=== PATIENT | male | born 1950 | race African-American/Black ===

== ENCOUNTER 2022-11-19 09:19 | Inpatient (IN) | payer MEDICARE, MEDICAID ==
[~2022-11-19] VITALS: Ht 188 cm; Wt 66.7 kg
[2022-11-19] MEDS ORDERED: CEFEPIME 1 GM in IV D5W 50 ML IV ONE ×2 (09:30→15:00)
[2022-11-19] MEDS ORDERED: VANCOMYCIN 1 GM in IV D5W 250 ML IV ONE (09:30)
[2022-11-19] MEDS ORDERED: IV NS 0.9% 1,000 ML BAG IV ONE (09:30)
--- NOTE | 2022-11-19 09:37 | NUR ---
MOVE SHEET SUBMITTED.
--- NOTE | 2022-11-19 09:40 | NUR ---
Patient non verbal, not able to asseds patients mental status at this moment. IV 20g placed on raisa right arm, IV fluids initiated.
--- NOTE | 2022-11-19 09:43 | NUR ---
CALLED [facility] [phone] TYLENOL 325 X 2 PO GIVEN AT 0815 PER [facility].
[2022-11-19 09:48] LABS: BASOPHILS # (AUTO) 0.1 K/uL (0.0-0.2); BASOPHILS % (AUTO) 0.8 % (0.0-2.0); EOSINOPHILS % (AUTO) 0.1 % (0.0-6.0); HEMATOCRIT 33 % (39-51); HEMOGLOBIN 10.1 g/dL (13.5-17.5); LYMPHOCYTES # (AUTO) 2.2 K/uL (0.8-4.8); LYMPHOCYTES % (AUTO) 14.7 % (20.0-44.0); MEAN CORPUSCULAR HGB CONC 31 g/dl (31.0-36.0); MEAN CORPUSCULAR VOLUME 85 fL (80-96); MONOCYTES # (AUTO) 1.2 K/uL (0.1-1.30); MONOCYTES % (AUTO) 8.2 % (2.0-12.0); NEUTROPHILS # (AUTO) 11.3 K/uL (1.8-8.9); NEUTROPHILS % (AUTO) 76.2 % (43.0-81.0); PLATELET COUNT (AUTO) 303 K/uL (150-450); WHITE BLOOD COUNT (AUTO) 14.9 K/uL (4.3-11.0)
--- NOTE | 2022-11-19 09:50 | NUR ---
Bloodcollected, including cultures and urine, sent to lab.
[2022-11-19 09:52] LABS: BILIRUBIN,URINE 1+ (NEGATIVE); COLOR,URINE BROWN (YELLOW); LEUKOCYTE ESTERASE ,URINE 3+ (NEGATIVE); NITRITE, URINE NEGATIVE (NEGATIVE); PH,URINE 6.5 (5.0-8.0); PROTEIN,URINE 3+ mg/dl (NEGATIVE); UGLUCOSE NEGATIVE (NEGATIVE)
[2022-11-19] MEDS ORDERED: LEVE500T9 PO (10:15)
[2022-11-19] MEDS ORDERED: CHOL100043 PO (10:15)
[2022-11-19] MEDS ORDERED: METO25TA20 PO (10:15)
[2022-11-19] MEDS ORDERED: FOLI0.4T6 PO (10:15)
[2022-11-19] MEDS ORDERED: MEGE400O4 PO (10:15)
[2022-11-19] MEDS ORDERED: COLL30OI TP (10:15)
[2022-11-19] MEDS ORDERED: AMIN30LI2 PO (10:15)
[2022-11-19] MEDS ORDERED: MAGN400O6 PO (10:15)
[2022-11-19] MEDS ORDERED: NA P133E RC (10:15)
[2022-11-19] MEDS ORDERED: BISA10SU11 RC (10:15)
[2022-11-19] MEDS ORDERED: SENN-261 PO (10:15)
[2022-11-19] MEDS ORDERED: ASPI-1169 PO (10:15)
[2022-11-19] MEDS ORDERED: NALO4SPR NS (10:15)
[2022-11-19] MEDS ORDERED: OXYC-128 PO ×2 (10:15)
[2022-11-19] MEDS ORDERED: ACET-868 PO (10:15)
[2022-11-19] MEDS ORDERED: ASCO-340 PO (10:15)
[2022-11-19 10:23] LABS: BACTERIA,URINE Many /HPF (None Seen); SQUAMOUS EPITHELIAL CELL,UR Moderate /HPF (None Seen); WBC,URINE TOO NUMEROUS TO COUN /HPF (0-3)
--- NOTE | 2022-11-19 10:23 | NUR ---
[facility] CALLED SLIME PLANT OPERATOR HELPER PAGED.
--- NOTE | 2022-11-19 11:05 | NUR ---
covid swab collected and sent to lab
[2022-11-19 11:09] LABS: CALCIUM, SERUM 10.1 mg/dL (8.5-10.1); CARBON DIOXIDE 23 mmol/L (21-32); CHLORIDE 121 mmol/L (98-107); CREATININE 2.4 mg/dL (0.6-1.3); GLUCOSE 135 mg/dL (74-106); POTASSIUM 4.1 mmol/L (3.5-5.1); UREA NITROGEN, BLOOD 76 mg/dL (7-18)
[2022-11-19 11:11] LABS: SODIUM SERUM 156 mmol/L (136-145)
[2022-11-19 11:22] LABS: ALANINE AMINOTRANSFERASE 283 U/L (12-78); ALBUMIN 2.2 g/dL (3.4-5.0); ALKALINE PHOSPHATASE 144 U/L (46-116); ASPARTATE AMINOTRANSFERASE 296 U/L (15-37); BILIRUBIN,DIRECT 0.6 mg/dL (0.0-0.2); BILIRUBIN,TOTAL 0.9 mg/dL (0.2-1.0)
[2022-11-19] MEDS: LEVETIRACETAM (500MG) 500 MG in IV NS 0.9% 100 ML IV SCH (12:30)
[2022-11-19] MEDS ORDERED: IV NS 0.9% 1,000 ML IV ONE (13:00)
[2022-11-19] MEDS ORDERED: Z GUARD REMEDY 4 OZ OINT TP PRN (13:00)
[2022-11-19] MEDS ORDERED: ENOXAPARIN SODIUM 30 MG/0.3 ML DISP.SYRIN SQ SCH (13:00)
[2022-11-19] MEDS ORDERED: ACETAMINOPHEN 650 MG/SUPP.RECT RC PRN (13:00)
[2022-11-19] MEDS ORDERED: ONDANSETRON HCL/PF 4 MG/2 ML VIAL IVP PRN (13:00)
--- NOTE | 2022-11-19 13:05 | NUR ---
Patient more alert now, non-verbal (nods). Suctioned secretions, oral cavity is dry with thick white/yellow secretions. Provided oral care, patient was able to use suction wand himself with my help. Will continue to monitor thorughout shift.
[2022-11-19] MEDS ORDERED: ASPIRIN 300 MG/SUPP.RECT RC ONE (13:30)
--- NOTE | 2022-11-19 13:50 | NUR ---
Report given to Joann BRADLEY, pt to go to room # 547-2
--- NOTE | 2022-11-19 14:15 | NUR ---
NEW PATIENT NOTES PATIENT ARRIVED FROM ER VIA STRETCHER REPORT RECEIVED FROM ER NURSE MICHELLE. PATIENT A&O X1 NONVERBAL ON NC 4 LITTERS O2 SAT 97%. WOUNDS PHOTO TAKEN PLACED IN THE CHART. SWALLOW EVAL AND WOUND CONSULT ORDERED. PATIENT'S SISTER CALLED AND REPORTED THAT PATIENT WILLING TO HAVE CPR BUT NOT INTUBATION DR. BETSEY MOODY INFORMED AND HE SAID OK. PATIENT'S SISTER TUNDE STATED THAT SHE HAS A POWER OF GENERAL DENTIST/OWNER I INFORMED DR. BETSEY MOODY WELL. WILL CONTINUE THE CARE THROUGHOUT THE SHIFT.
[2022-11-19] MEDS: IV D5/ 0.9% NACL 1,000 ML IV PRN (15:40)
[2022-11-19] MEDS: ENOXAPARIN SODIUM 30 MG/0.3 ML DISP.SYRIN SQ SCH (15:41)
[2022-11-19 16:00] VITALS: BP 91/47
--- NOTE | 2022-11-19 18:57 | NUR ---
RN CLOSING NOTES PATIENT A&O X1 NONVERBAL ON NC 4 LITTERS O2 SAT 97%. WOUNDS PHOTO TAKEN PLACED IN THE CHART. SWALLOW EVAL AND WOUND CONSULT ORDERED. PATIENT HAS LFA G 20 D5 NS @70 ML/HR RUNNING AND INTACT, PATIENT HAS FLEMING WITH GREGORIO LOOKING URINE. PATIENT'S SISTER CALLED AND REPORTED THAT PATIENT WILLING TO HAVE CPR BUT NOT INTUBATION DR. BETSEY MOODY INFORMED AND HE SAID OK. PATIENT'S SISTER TUNDE [phone] STATED THAT SHE HAS A POWER OF FISH INSPECTOR I INFORMED DR. BETSEY MOODY WELL. WILL INDORSE THE PATIENT TO THE PM SHIFT FOR SARAI.
[2022-11-19 20:00] VITALS: BP 97/62
--- NOTE | 2022-11-19 20:08 | NUR ---
RN NOTES: RECEIVED LAB RESULTS. TROPONIN LEVEL 238. TRENDING DOWN
[2022-11-20] VITALS: BP 102/66
[2022-11-20] MEDS: LEVETIRACETAM (500MG) 500 MG in IV NS 0.9% 100 ML IV SCH ×2 (00:57→11:56)
[2022-11-20 04:00] VITALS: BP 103/68
[2022-11-20] MEDS: IV D5/ 0.9% NACL 1,000 ML IV PRN (06:28)
--- NOTE | 2022-11-20 06:48 | NUR ---
RN CLOSING NOTES PATIENT IN BED SLEEPING, BUT EASILY AROUSABLE, ALERT/ORIENTED X1-2 WITH UNCLEAR SPEECH. ON O2 AT 4L/MIN VIA N/C. O2 SAT 99%. IV ACCESS ON LAC#20G AND RFA#20G INTACT AND PATENT. NO S/S OF INFILTRATIONS. RUNNING D5NS AT 75CC/HR. NO FACIAL GRIMACING NOTED. NO ACUTE DISTRESS. FLEMING CATHETER IN PLACE. NOTED GREGORIO COLOR URINE. ALL DUE MEDS GIVEN ORDERED. ALL SAFETY MEASURES IN PLACE. SIDE RAILS UP X3, BED IN LOWEST POSITION AND LOCKED. PLACE CALL LIGHT WITH IN REACH. WILL ENDORSE TO MORNING SHIFT NURSE.
[2022-11-20 07:19] LABS: BASOPHILS % (AUTO) 0.3 % (0.0-2.0); EOSINOPHILS % (AUTO) 0.9 % (0.0-6.0); HEMATOCRIT 32 % (39-51); HEMOGLOBIN 9.5 g/dL (13.5-17.5); LYMPHOCYTES # (AUTO) 1.4 K/uL (0.8-4.8); LYMPHOCYTES % (AUTO) 7.9 % (20.0-44.0); MEAN CORPUSCULAR HGB CONC 30 g/dl (31.0-36.0); MEAN CORPUSCULAR VOLUME 88 fL (80-96); MONOCYTES # (AUTO) 0.8 K/uL (0.1-1.30); MONOCYTES % (AUTO) 4.6 % (2.0-12.0); NEUTROPHILS # (AUTO) 15.5 K/uL (1.8-8.9); NEUTROPHILS % (AUTO) 86.3 % (43.0-81.0); PLATELET COUNT (AUTO) 253 K/uL (150-450); RED BLOOD CELL COUNT(AUTO) 3.65 MIL/uL (4.5-6.0); WHITE BLOOD COUNT (AUTO) 17.9 K/uL (4.3-11.0)
--- NOTE | 2022-11-20 07:29 | NUR ---
WOUND CARE CONSULT: PT RESTING AT THIS TIME. ADMISSION PHOTOS AND SENDING FACILITY DOCUMENTATION INDICATE SACRAL AND UPPER BACK STAGE 4 PRESSURE ULCERS AND FOOT WOUNDS, PRESENT ON ADMISSION. DR BARBER AND DR WHITAKER CALLED FOR SURGICAL AND DPM CONSULTS. DISCUSSED SKIN PROTECTION WITH NURSING STAFF. PT IS ON [facility] LOW AIRLOSS BED. IN AGREEMENT WITH PLAN OF CARE.
[2022-11-20] MEDS: ASPIRIN 81 MG TAB.CHEW PO SCH (09:00)
--- NOTE | 2022-11-20 09:03 | NUR ---
ASPIRIN HELD, PATIENT IS NPO, ST STATED THAT SWALLOW EVAL CANNOT BE DONE SINCE PATIENT HAS A HISTORY OF ASPIRATION AND IS NOT ORIENTED. WILL INFORM THE DOCTOR.
[2022-11-20] MEDS: PANTOPRAZOLE 40 MG VIAL IV SCH (09:05)
[2022-11-20 09:18] LABS: CALCIUM, SERUM 8.9 mg/dL (8.5-10.1); CARBON DIOXIDE 23 mmol/L (21-32); CREATININE 1.4 mg/dL (0.6-1.3); GLUCOSE 134 mg/dL (74-106); PHOSPHORUS 2.6 mg/dL (2.5-4.9); POTASSIUM 4.2 mmol/L (3.5-5.1); UREA NITROGEN, BLOOD 47 mg/dL (7-18)
[2022-11-20 09:28] LABS: CHLORIDE 128 mmol/L (98-107); SODIUM SERUM 159 mmol/L (136-145)
[2022-11-20] MEDS: THERAHONEY GEL 1.5 OZ TUBE TP SCH ×2 (11:56→21:30)
[2022-11-20 12:00] VITALS: BP 89/58
[2022-11-20] MEDS: IV D5/0.45 NACL 1,000 ML IV PRN (12:00)
[2022-11-20 12:53] LABS: ABG BASE EXCESS -6.2 mmol/L; ABG PCO2 27.8 mmHg (35.0-45.0); ABG PH 7.415 (7.350-7.450); ABG PO2 109.5 mmHg (75.0-100.0); COHb 2.3 % (0.5-1.5); MetHb 0.2 % (0.0-1.5); O2Hb 96.1 % (94.0-97.0); SITE, ABG Right Brachial; VENT MODE, BG 10LPM SIMPLE MASK
--- NOTE | 2022-11-20 14:35 | NUR ---
WOUND DEBRIDEMENT CONSENT OBTAIN OVER THE PHONE FROM PATIENT'S SISTER TUNDE CERNA AND PLACED AT PATIENT'S CHART
[2022-11-20] MEDS: CEFEPIME 1 GM in IV D5W 50 ML IV SCH (15:17)
[2022-11-20 15:21] LABS: EOSINOPHILS % (MANUAL) 1 % (0-4); LYMPHOCYTES % (MANUAL) 10 % (16-48); MONOCYTES % (MANUAL) 2 % (0-11.0); NEUTROPHILS % (MANUAL) 87 (42-76)
[2022-11-20] MEDS: ENOXAPARIN SODIUM 30 MG/0.3 ML DISP.SYRIN SQ SCH (15:21)
[2022-11-20 16:00] VITALS: BP 84/49
[2022-11-20] MEDS: VANCOMYCIN 1 GM in IV D5W 250ml IV SCH (16:15)
--- NOTE | 2022-11-20 19:05 | NUR ---
RN CLOSING NOTES PATIENT A&O X1 NONVERBAL ON NC 4 LITTERS O2 SAT 97%. PATIENT HAS LFA G 20 D5 NS @100 ML/HR RUNNING AND INTACT, PATIENT HAS FLEMING WITH GREGORIO LOOKING URINE. CALLED PATIENT'S SISTER TUNDE TO OBTAIN WOUND DEBRIDMENT CONSENT FOR BILATERALLY HEELS TELEPHONE CONSENT IN PATIENT'S CHART. ALL DUE MEDS GIVEN, VIA IV PATIENT IS NPO. WILL INDORSE THE PATIENT TO THE PM SHIFT FOR SARAI.
[2022-11-20 20:00] VITALS: BP 103/64
[2022-11-20] MEDS ORDERED: VANCOMYCIN 1 GM in IV D5W 250ml IV SCH (22:00)
[2022-11-21] VITALS: BP_SYST 103; BP_SYST 108; BP_DIAS 64
[2022-11-21] MEDS: LEVETIRACETAM (500MG) 500 MG in IV NS 0.9% 100 ML IV SCH ×3 (01:17→23:33)
[2022-11-21 04:00] VITALS: BP 103/66
[2022-11-21] MEDS: IV D5/0.45 NACL 1,000 ML IV PRN (05:40)
[2022-11-21 08:00] VITALS: BP 96/64
[2022-11-21] MEDS: THERAHONEY GEL 1.5 OZ TUBE TP SCH ×4 (09:00→11:16)
[2022-11-21 10:04] LABS: BASOPHILS # (AUTO) 0.1 K/uL (0.0-0.2); BASOPHILS % (AUTO) 0.4 % (0.0-2.0); EOSINOPHILS % (AUTO) 2.6 % (0.0-6.0); HEMATOCRIT 31 % (39-51); HEMOGLOBIN 9.1 g/dL (13.5-17.5); LYMPHOCYTES # (AUTO) 1.4 K/uL (0.8-4.8); LYMPHOCYTES % (AUTO) 5.2 % (20.0-44.0); MEAN CORPUSCULAR HGB CONC 30 g/dl (31.0-36.0); MEAN CORPUSCULAR VOLUME 87 fL (80-96); MONOCYTES # (AUTO) 0.8 K/uL (0.1-1.30); NEUTROPHILS % (AUTO) 88.8 % (43.0-81.0); PLATELET COUNT (AUTO) 325 K/uL (150-450); RED BLOOD CELL COUNT(AUTO) 3.53 MIL/uL (4.5-6.0)
[2022-11-21] MEDS: PANTOPRAZOLE 40 MG VIAL IV SCH (10:06)
[2022-11-21] MEDS: ASPIRIN 81 MG TAB.CHEW PO SCH (10:07)
[2022-11-21 11:01] LABS: ALANINE AMINOTRANSFERASE 121 U/L (12-78); ALBUMIN 1.6 g/dL (3.4-5.0); ALKALINE PHOSPHATASE 116 U/L (46-116); ASPARTATE AMINOTRANSFERASE 84 U/L (15-37); BILIRUBIN,TOTAL 0.3 mg/dL (0.2-1.0); CALCIUM, SERUM 9.2 mg/dL (8.5-10.1); CARBON DIOXIDE 24 mmol/L (21-32); CREATININE 1.4 mg/dL (0.6-1.3); GLUCOSE 112 mg/dL (74-106); MAGNESIUM 2.1 mg/dL (1.8-2.4); PHOSPHORUS 2.4 mg/dL (2.5-4.9); POTASSIUM 3.8 mmol/L (3.5-5.1); TOTAL PROTEIN, SERUM 7.7 g/dL (6.4-8.2); UREA NITROGEN, BLOOD 34 mg/dL (7-18)
[2022-11-21 11:03] LABS: CHLORIDE 129 mmol/L (98-107); SODIUM SERUM 161 mmol/L (136-145)
[2022-11-21] MEDS: ENOXAPARIN SODIUM 40 MG/0.4 ML DISP.SYRIN SQ SCH (11:38)
[2022-11-21] MEDS: IV D5W 1,000 ML IV PRN (11:39)
[2022-11-21 12:00] VITALS: BP 95/66
[2022-11-21] MEDS: CEFEPIME 1 GM in IV D5W 50 ML IV SCH (14:43)
[2022-11-21] MEDS: VANCOMYCIN 1 GM in IV D5W 250ml IV SCH (15:26)
[2022-11-21] MEDS ORDERED: Sodium Phosphate 15 MMOL in IV NS 0.9% 245 ML IV SCH ×2 (15:30→17:00)
[2022-11-21 16:00] VITALS: BP 92/62
--- NOTE | 2022-11-21 19:30 | NUR ---
DIRECT MARKETING SPECIALIST OPENING NOTE RECEIVED PT IN BED, AWAKE, A/O X 0 TO SELF. CURRENTLY ON RA, TOLERATING WELL, SATING @ 98%. PROCESS DEVELOPMENT ENGINEER READS ST WITH HR IN 110s AT THIS TIME. NO SOB, BREATHING IS EVEN AND UNLABORED. NO S/SX OF ACUTE RESPI DISTRESS NOTED AT THIS TIME. IV ACCESS ON RFA #20g RUNNING D5W @ 75 CC/HR, PATENT, INTACT AND FLUSHES WELL. FC IN PLACE DRAINING YELLOW URINE BY GRAVITY. ALL SAFETY MEASURES IN PLACE: BED LOCKED IN LOW POSITION, BED ALARM ON. SR UP X 3, CALL LIGHT WITHIN REACH. WILL CONTINUE TO MONITOR PT.
[2022-11-21 20:00] VITALS: BP 109/70
[2022-11-21 20:50] LABS: BAND % (MANUAL) 4 % (0.0-5.0); EOSINOPHILS % (MANUAL) 4 % (0-4); LYMPHOCYTES % (MANUAL) 6 % (16-48); MONOCYTES % (MANUAL) 2 % (0-11.0); NEUTROPHILS % (MANUAL) 84 (42-76)
[2022-11-21] MEDS: MUPIROCIN OINT 2% 22 GM TUBE NS SCH (20:53)
[2022-11-22] VITALS (7 sets, daily range): BP systolic 87–112; BP diastolic 58–65
--- NOTE | 2022-11-22 06:28 | NUR ---
RN CLOSING NOTE NO SIGNIFICANT CHANGE T/O THE NIGHT. ALL DUE MEDS GIVEN. NEEDS MET. PM CARE DONE. TURNED AND REPOSITIONED. WILL ENDORSE TO AM SHIFT NURSE FOR SARAI.
--- NOTE | 2022-11-22 07:25 | NUR ---
RN OPENING NOTE RECEIVED PATIENT IN BED, AWAKE, ALERT TO SELF, NO SIGNS OF ACUTE DISTRESS NOTED. ON O2 INHALATION @ 2LPM VIA N/C, NO SOB NOTED, BREATHING EVEN AND UNLABORED. ON TELE MONITORING SHOWING SINUS RHYTHM, HR @98. DENIES ANY PAIN AT THIS TIME. NOTED WITH IV ACCESS ON RIGHT FOREARM #20G, INTACT AND PATENT WITH D5W @75ML/HR RUNNING. F/C INTACT AND PATENT DRAINING GREGORIO COLORED URINE VIA GRAVITY. PATIENT CURRENTLY ON NPO. ASPIRATION PRECAUTIONS AND SAFETY MEASURE IN PLACE. BED IN LOW AND LOCKED POSITION, SIDE RAILS UP X2, CALL LIGHT PLACED WITHIN EASY REACH, WILL CONTINUE TO MONITOR PATIENT.
[2022-11-22 07:42] LABS: BASOPHILS # (AUTO) 0.1 K/uL (0.0-0.2); BASOPHILS % (AUTO) 0.6 % (0.0-2.0); EOSINOPHILS % (AUTO) 2.2 % (0.0-6.0); HEMATOCRIT 32 % (39-51); HEMOGLOBIN 9.5 g/dL (13.5-17.5); LYMPHOCYTES # (AUTO) 1.5 K/uL (0.8-4.8); LYMPHOCYTES % (AUTO) 5.7 % (20.0-44.0); MEAN CORPUSCULAR HGB CONC 30 g/dl (31.0-36.0); MEAN CORPUSCULAR VOLUME 87 fL (80-96); MONOCYTES # (AUTO) 0.8 K/uL (0.1-1.30); NEUTROPHILS # (AUTO) 22.8 K/uL (1.8-8.9); NEUTROPHILS % (AUTO) 88.5 % (43.0-81.0); PLATELET COUNT (AUTO) 363 K/uL (150-450); RED BLOOD CELL COUNT(AUTO) 3.69 MIL/uL (4.5-6.0); WHITE BLOOD COUNT (AUTO) 25.7 K/uL (4.3-11.0)
[2022-11-22] MEDS: PANTOPRAZOLE 40 MG VIAL IV SCH (08:29)
[2022-11-22] MEDS: ASPIRIN 81 MG TAB.CHEW PO SCH (08:29)
[2022-11-22] MEDS: MUPIROCIN OINT 2% 22 GM TUBE NS SCH ×2 (08:34→20:42)
[2022-11-22] MEDS: THERAHONEY GEL 1.5 OZ TUBE TP SCH (08:35)
[2022-11-22 08:48] LABS: ALANINE AMINOTRANSFERASE 104 U/L (12-78); ALBUMIN 1.8 g/dL (3.4-5.0); ALKALINE PHOSPHATASE 131 U/L (46-116); ASPARTATE AMINOTRANSFERASE 58 U/L (15-37); BILIRUBIN,TOTAL 0.3 mg/dL (0.2-1.0); CALCIUM, SERUM 9.6 mg/dL (8.5-10.1); CARBON DIOXIDE 22 mmol/L (21-32); CHLORIDE 125 mmol/L (98-107); CREATININE 1.5 mg/dL (0.6-1.3); GLUCOSE 99 mg/dL (74-106); MAGNESIUM 2.2 mg/dL (1.8-2.4); PHOSPHORUS 3.3 mg/dL (2.5-4.9); POTASSIUM 3.5 mmol/L (3.5-5.1); TOTAL PROTEIN, SERUM 8.3 g/dL (6.4-8.2); UREA NITROGEN, BLOOD 27 mg/dL (7-18)
[2022-11-22 08:51] LABS: SODIUM SERUM 157 mmol/L (136-145)
[2022-11-22] MEDS: IV D5W 1,000 ML IV PRN (09:33)
[2022-11-22] MEDS: ENOXAPARIN SODIUM 40 MG/0.4 ML DISP.SYRIN SQ SCH (10:45)
[2022-11-22] MEDS: LEVETIRACETAM (500MG) 500 MG in IV NS 0.9% 100 ML IV SCH ×2 (11:34→23:33)
[2022-11-22] MEDS: CEFEPIME 1 GM in IV D5W 50 ML IV SCH (14:10)
[2022-11-22] MEDS: VANCOMYCIN 1 GM in IV D5W 250ml IV SCH (15:27)
--- NOTE | 2022-11-22 18:39 | NUR ---
RN CLOSING NOTE PATIENT IN BED, ASLEEP, EASILY AROUSED. NO SIGNS OF ACUTE DISTRESS NOTED. REMAINS ON O2 INHALATION @ 2LPM VIA N/C, NO SOB NOTED, BREATHING EVEN AND UNLABORED. CONTINUE ON TELE MONITORING SHOWING SINUS TACH, HR @103. NO S/SX OF PAIN AT THIS TIME. WITH MIDLINE ON RIGHT UPPER ARM #18G, INTACT AND PATENT WITH D5W @75ML/HR RUNNING. F/C INTACT AND PATENT DRAINING GREGORIO COLORED URINE VIA GRAVITY. TURNED AND REPOSITIONED Q2HR. ASPIRATION PRECAUTIONS AND SAFETY MEASURE MAINTAINED. BED IN LOW AND LOCKED POSITION, SIDE RAILS UP X2, CALL LIGHT PLACED WITHIN EASY REACH, WILL ENDORSE TO NEXT SHIFT FOR CONTINUITY OF CARE.
--- NOTE | 2022-11-22 19:26 | NUR ---
HUMAN SERVICES ASSISTANT OPENING NOTE RECEIVED PATIENT IN BED, WITH HOB ELEVATED, AWAKE WITH CONFUSION. AFEBRILE AND NOT IN ANY FORM OF ACUTE DISTRESS. ON O2 INHALATION VIA NASAL CANNULA AT 2LPM. WITH IV ACCESS ON CAROLYNN MIDLINE 18G RUNNING WITH D5W RUNNING AT 75ML/HR. ON TELE MONITORING WITH CURRENT READING OF ST 103. WITH INTACT LFEMING CATHETER DRAINING WITH YELLOW URINE OUTPUT, NO HEMATURIA OR SEDIMENTS NOTED. SAFETY MEASURES IN PLACE. KEPT BED IN LOCKED AND IN LOW POSITION. SIDE RAILS UP X2. CALL LIGHT WITHIN EASY REACH.
[2022-11-23] VITALS (7 sets, daily range): BP systolic 89–112; BP diastolic 55–70
[2022-11-23] MEDS: IV D5W 1,000 ML IV PRN (02:40)
--- NOTE | 2022-11-23 05:45 | NUR ---
CAREER REPRESENTATIVE NOTE CALLED SISTER TUNDE TO SECURE CONSENT OVER THE PHONE FOR PROPOSED PROCEDURE (DEBRIDEMENT OF SACRUM AND UPPER BACK) ORDERED BY AND AGREED TO IT. ANOTHER LICENSED NURSE ELAINE ALSO SERVED A WITNESS AND VERIFIED THAT SISTER TUNDE GAVE HER CONSENT FOR THE PROCEDURE.
[2022-11-23 06:18] LABS: BASOPHILS # (AUTO) 0.1 K/uL (0.0-0.2); BASOPHILS % (AUTO) 0.5 % (0.0-2.0); HEMATOCRIT 27 % (39-51); LYMPHOCYTES # (AUTO) 1.6 K/uL (0.8-4.8); LYMPHOCYTES % (AUTO) 9.5 % (20.0-44.0); MEAN CORPUSCULAR HGB CONC 30 g/dl (31.0-36.0); MEAN CORPUSCULAR VOLUME 88 fL (80-96); MONOCYTES # (AUTO) 0.7 K/uL (0.1-1.30); MONOCYTES % (AUTO) 4.3 % (2.0-12.0); NEUTROPHILS # (AUTO) 13.8 K/uL (1.8-8.9); NEUTROPHILS % (AUTO) 82.7 % (43.0-81.0); PLATELET COUNT (AUTO) 339 K/uL (150-450); RED BLOOD CELL COUNT(AUTO) 3.03 MIL/uL (4.5-6.0); WHITE BLOOD COUNT (AUTO) 16.7 K/uL (4.3-11.0)
--- NOTE | 2022-11-23 06:30 | NUR ---
INORGANIC CHEMISTRY TEACHER CLOSING NOTE PATIENT IN BED, WITH HOB ELEVATED, ASLEEP BUT EASY TO AROUSE AND RESPONDS TO VERBAL AND TACTILE STIMULI. AFEBRILE AND NOT IN ANY FORM OF ACUTE DISTRESS. ON O2 INHALATION VIA NASAL CANNULA AT 2LPM. WITH IV ACCESS ON CAROLYNN MIDLINE 18G RUNNING WITH D5W AT 75ML/HR. ON TELE MONITORING WITH CURRENT READING OF SR 96. WITH INTACT FLEMING CATHETER DRAINING WITH YELLOW URINE OUTPUT, NO HEMATURIA NOTED WITH APPROX. 500ml OUTPUT DURING THE SHIFT. MEDICATED ORDERED. MAINTAINED ON NPO. SAFETY MEASURES IN PLACE. KEPT BED IN LOCKED AND IN LOW POSITION. SIDE RAILS UP X2. CALL LIGHT WITHIN EASY REACH. ALL NURSING NEEDS ATTENDED. ENDORSED TO INCOMING SHIFT FOR CONTINUITY OF CARE.
[2022-11-23 06:44] LABS: ALANINE AMINOTRANSFERASE 59 U/L (12-78); ALBUMIN 1.5 g/dL (3.4-5.0); ALKALINE PHOSPHATASE 105 U/L (46-116); ASPARTATE AMINOTRANSFERASE 33 U/L (15-37); BILIRUBIN,TOTAL 0.3 mg/dL (0.2-1.0); CALCIUM, SERUM 8.8 mg/dL (8.5-10.1); CHLORIDE 121 mmol/L (98-107); CREATININE 1.3 mg/dL (0.6-1.3); GLUCOSE 106 mg/dL (74-106); PHOSPHORUS 3.2 mg/dL (2.5-4.9); POTASSIUM 3.1 mmol/L (3.5-5.1); SODIUM SERUM 151 mmol/L (136-145); TOTAL PROTEIN, SERUM 7.1 g/dL (6.4-8.2); UREA NITROGEN, BLOOD 21 mg/dL (7-18)
[2022-11-23 06:49] LABS: CARBON DIOXIDE 21 mmol/L (21-32)
--- NOTE | 2022-11-23 07:15 | NUR ---
SENIOR ADMINISTRATIVE SERVICES OFFICER OPENING NOTE RECEIVED PATIENT IN BED WITH HOB ELEVATED, AWAKE, AWARE OF SELF ONLY, NON-VERBAL, AFEBRILE, NO ACUTE DISTRESS NOTED. ON O2 INHALATION VIA NASAL CANNULA AT 2LPM WITHOUT ANY DIFFICULTY. WITH IV ACCESS ON CAROLYNN MIDLINE 18G RUNNING WITH D5W RUNNING AT 75ML/HR, PATENT AND FLUSHING WELL. NO SIGNS OF INFILTRATION NOTED. ON TELE MONITORING WITH CURRENT READING OF SR @ 95 BPM. WITH FLEMING CATHETER DRAINING YELLOW URINE VIA GRAVITY, INTACT, NO HEMATURIA NOR SEDIMENTS NOTED. SAFETY MEASURES IN PLACE. KEPT BED IN LOCKED AND LOWEST POSITION, SIDE RAILS UP X2, BED ALARM ON, CALL LIGHT AND TRAY TABLE WITHIN EASY REACH. WILL CONTINUE TO MONITOR.
[2022-11-23] MEDS: ASPIRIN 81 MG TAB.CHEW PO SCH (08:39)
[2022-11-23] MEDS: PANTOPRAZOLE 40 MG VIAL IV SCH (08:46)
[2022-11-23] MEDS: MUPIROCIN OINT 2% 22 GM TUBE NS SCH ×2 (08:50→21:28)
[2022-11-23] MEDS: THERAHONEY GEL 1.5 OZ TUBE TP SCH ×2 (08:50→08:51)
[2022-11-23] MEDS: POTASSIUM CL. PREMIX PERIPHER. 50 ML IV SCH ×4 (10:00→13:35)
[2022-11-23] MEDS: ENOXAPARIN SODIUM 40 MG/0.4 ML DISP.SYRIN SQ SCH (10:40)
[2022-11-23] MEDS: LEVETIRACETAM (500MG) 500 MG in IV NS 0.9% 100 ML IV SCH (12:04)
[2022-11-23] MEDS: CEFEPIME 1 GM in IV D5W 50 ML IV SCH (14:50)
[2022-11-23] MEDS: VANCOMYCIN 1 GM in IV D5W 250ml IV SCH (15:27)
--- NOTE | 2022-11-23 18:44 | NUR ---
TRANSPORT ASSISTANT CLOSING NOTE PATIENT IN BED WITH HOB SLIGHTLY ELEVATED, EASILY AWAKEN, AWARE OF SELF ONLY, MUMBLES WORDS, AFEBRILE, NO ACUTE DISTRESS NOTED. STILL ON O2 INHALATION VIA NASAL CANNULA AT 2LPM WITHOUT ANY DIFFICULTY. WITH IV ACCESS ON CAROLYNN MIDLINE G#18 RUNNING WITH D5W AT 75ML/HR, PATENT AND FLUSHING WELL. TELE MONITORING IS SHOWING SR @ 98 BPM. WITH INTACT FLEMING CATHETER DRAINED CLOUDY YELLOW URINE ABOUT 500 ML. NOT SHOWING ANY PAIN NOR DISCOMFORT AT THE MOMENT. ALL DUE MEDS GIVEN. WOUND CARE PROVIDED, TURNED PT Q2H AND OFFLOADED ORDERED. SAFETY MEASURES MAINTAINED: KEPT BED IN LOCKED AND LOWEST POSITION, SIDE RAILS UP X2, BED ALARM ON, CALL LIGHT AND TRAY TABLE WITHIN EASY REACH. WILL ENDORSE TO TRACTOR TRAILER DRIVER NURSE.
--- NOTE | 2022-11-23 19:30 | NUR ---
EMAIL ADMINISTRATOR OPENING NOTES RECEIVED PT AWAKE IN BED, HOB SLIGHTLY ELEVATED, EASILY AROUSABLE. A/O X1, ORIENT TO PERSON ONLY, MUMBLES WORDS. AFEBRILE, NO ACUTE DISTRESS NOTED. ON O2 2L VIA NC WITHOUT ANY DIFFICULTY. IV ACCESS ON CAROLYNN MIDLINE G#18 RUNNING WITH D5W AT 75ML/HR, PATENT AND FLUSHING WELL. TELE MONITORING IS SHOWING SR @ 98 BPM. INTACT FLEMING CATHETER DRAINED CLOUDY YELLOW URINE. NOT SHOWING ANY PAIN NOR DISCOMFORT AT THE MOMENT. WILL TURN PT Q2H AND OFFLOAD ORDERED. SAFETY MEASURES IN PLACE: KEPT BED IN LOCKED AND LOWEST POSITION, SIDE RAILS UP X3, BED ALARM ON, CALL LIGHT AND TRAY TABLE WITHIN EASY REACH. WILL CONTINUE TO MONITOR.
[2022-11-24] VITALS (7 sets, daily range): BP systolic 99–109; BP diastolic 64–73
[2022-11-24] MEDS: IV D5W 1,000 ML IV PRN ×2 (00:05→15:14)
[2022-11-24] MEDS: LEVETIRACETAM (500MG) 500 MG in IV NS 0.9% 100 ML IV SCH ×3 (00:06→23:38)
--- NOTE | 2022-11-24 06:40 | NUR ---
MEDICAL FRONT DESK SPECIALIST CLOSING NOTES PT RESTING IN BED AT THIS TIME, HOB SLIGHTLY ELEVATED, EASILY AROUSABLE. A/O X1, ORIENT TO PERSON ONLY, MUMBLES WORDS. AFEBRILE, NO ACUTE DISTRESS NOTED. STABLE ON O2 2L VIA NC WITHOUT ANY DIFFICULTY. IV ACCESS ON CAROLYNN MIDLINE G#18 RUNNING WITH D5W AT 75ML/HR, PATENT AND FLUSHING WELL. TELE MONITORING IS SHOWING SR @ 99 BPM. INTACT FLEMING CATHETER DRAINED CLOUDY YELLOW URINE, TOTAL 500 ML. NOT SHOWING ANY PAIN NOR DISCOMFORT AT THE MOMENT. WOUND CARE PERFORMED AND PATIENT REPOSITIONED. ALL CARE PROVIDED AND MEDS TOLERATED WELL. SAFETY MEASURES MAINTAINED: KEPT BED IN LOCKED AND LOWEST POSITION, SIDE RAILS UP X3, BED ALARM ON, CALL LIGHT AND TRAY TABLE WITHIN EASY REACH. WILL ENDORSE SARAI TO DAY SHIFT NURSE.
[2022-11-24 07:13] LABS: BASOPHILS # (AUTO) 0.1 K/uL (0.0-0.2); BASOPHILS % (AUTO) 0.6 % (0.0-2.0); EOSINOPHILS % (AUTO) 3.5 % (0.0-6.0); HEMATOCRIT 26 % (39-51); HEMOGLOBIN 7.8 g/dL (13.5-17.5); LYMPHOCYTES # (AUTO) 1.6 K/uL (0.8-4.8); LYMPHOCYTES % (AUTO) 12.1 % (20.0-44.0); MEAN CORPUSCULAR HGB CONC 30 g/dl (31.0-36.0); MEAN CORPUSCULAR VOLUME 86 fL (80-96); MONOCYTES # (AUTO) 0.6 K/uL (0.1-1.30); MONOCYTES % (AUTO) 4.8 % (2.0-12.0); NEUTROPHILS # (AUTO) 10.7 K/uL (1.8-8.9); PLATELET COUNT (AUTO) 400 K/uL (150-450); RED BLOOD CELL COUNT(AUTO) 3.05 MIL/uL (4.5-6.0); WHITE BLOOD COUNT (AUTO) 13.6 K/uL (4.3-11.0)
[2022-11-24 07:23] LABS: ALBUMIN 1.5 g/dL (3.4-5.0); BILIRUBIN,TOTAL 0.3 mg/dL (0.2-1.0); CALCIUM, SERUM 8.8 mg/dL (8.5-10.1); CREATININE 1.1 mg/dL (0.6-1.3); MAGNESIUM 1.9 mg/dL (1.8-2.4); PHOSPHORUS 3.4 mg/dL (2.5-4.9); POTASSIUM 3.3 mmol/L (3.5-5.1)
[2022-11-24] MEDS: ASPIRIN 81 MG TAB.CHEW PO SCH (09:00)
[2022-11-24] MEDS: MUPIROCIN OINT 2% 22 GM TUBE NS SCH ×2 (09:00→20:57)
[2022-11-24] MEDS: THERAHONEY GEL 1.5 OZ TUBE TP SCH (09:00)
[2022-11-24] MEDS: POTASSIUM CL. PREMIX PERIPHER. 50 ML IV SCH ×2 (10:16→11:42)
[2022-11-24] MEDS: PANTOPRAZOLE 40 MG VIAL IV SCH (10:16)
[2022-11-24] MEDS: ENOXAPARIN SODIUM 40 MG/0.4 ML DISP.SYRIN SQ SCH (11:30)
--- NOTE | 2022-11-24 12:08 | NUR ---
RN NOTE DEBRIDEMENT ON BILATERAL HEELS PERFORMED ON WOUNDS TODAY. [facility] HELD
[2022-11-24] MEDS: CEFEPIME 1 GM in IV D5W 50 ML IV SCH (15:14)
[2022-11-24] MEDS: VANCOMYCIN 1 GM in IV D5W 250ml IV SCH (16:50)
--- NOTE | 2022-11-24 19:40 | NUR ---
PLATING MACHINE OPERATOR CLOSING NOTES PT RESTING IN BED AT THIS TIME, HOB 45DEGREES ELEVATED, EASILY AROUSABLE. A/O X1, ORIENT TO PERSON ONLY, MUMBLES WORDS. AFEBRILE, NO ACUTE DISTRESS NOTED. STABLE ON O2 2L VIA NC WITHOUT ANY DIFFICULTY. IV ACCESS ON CAROLYNN MIDLINE G#18 RUNNING WITH D5W AT 75ML/HR, PATENT AND FLUSHING WELL. TELE MONITORING IS SHOWING SR @ 99 BPM. INTACT FLEMING CATHETER DRAINED CLOUDY YELLOW URINE, TOTAL 600 ML. NOT SHOWING ANY PAIN NOR DISCOMFORT AT THE MOMENT. WOUND CARE PERFORMED AND PATIENT REPOSITIONED. ALL CARE PROVIDED AND MEDS TOLERATED WELL. SAFETY MEASURES MAINTAINED: KEPT BED IN LOCKED AND LOWEST POSITION, SIDE RAILS UP X3, BED ALARM ON, CALL LIGHT AND TRAY TABLE WITHIN EASY REACH. WILL ENDORSE SARAI TO SENIOR ORACLE APPLICATIONS DEVELOPER NURSE.
--- NOTE | 2022-11-24 19:45 | NUR ---
ENVIRONMENTAL ENGINEERING ASSISTANT OPENING NOTES PT RESTING IN BED AT THIS TIME, HOB 45 DEGREES ELEVATED, EASILY AROUSABLE. A/O X1, ORIENT TO PERSON ONLY, MUMBLES WORDS. AFEBRILE, NO ACUTE DISTRESS NOTED. STABLE ON O2 2L VIA NC WITHOUT ANY DIFFICULTY. IV ACCESS ON CAROLYNN MIDLINE G#18 RUNNING WITH D5W AT 75ML/HR, PATENT AND FLUSHING WELL. TELE MONITORING IS SHOWING SR @ 90S. INTACT FLEMING CATHETER DRAINED CLOUDY YELLOW URINE. NOT SHOWING ANY PAIN NOR DISCOMFORT AT THE MOMENT. SAFETY MEASURES MAINTAINED: KEPT BED IN LOCKED AND LOWEST POSITION, SIDE RAILS UP X3, BED ALARM ON, CALL LIGHT AND TRAY TABLE WITHIN EASY REACH.
[2022-11-25 00:25] VITALS: BP 104/68
[2022-11-25 05:20] VITALS: BP 116/84
[2022-11-25 06:33] LABS: BASOPHILS # (AUTO) 0.1 K/uL (0.0-0.2); BASOPHILS % (AUTO) 0.6 % (0.0-2.0); HEMATOCRIT 24 % (39-51); HEMOGLOBIN 7.5 g/dL (13.5-17.5); LYMPHOCYTES # (AUTO) 1.5 K/uL (0.8-4.8); LYMPHOCYTES % (AUTO) 13.4 % (20.0-44.0); MEAN CORPUSCULAR HGB CONC 32 g/dl (31.0-36.0); MEAN CORPUSCULAR VOLUME 83 fL (80-96); MONOCYTES # (AUTO) 0.7 K/uL (0.1-1.30); MONOCYTES % (AUTO) 6.4 % (2.0-12.0); NEUTROPHILS # (AUTO) 8.4 K/uL (1.8-8.9); NEUTROPHILS % (AUTO) 74.6 % (43.0-81.0); PLATELET COUNT (AUTO) 396 K/uL (150-450); RED BLOOD CELL COUNT(AUTO) 2.85 MIL/uL (4.5-6.0); WHITE BLOOD COUNT (AUTO) 11.3 K/uL (4.3-11.0)
--- NOTE | 2022-11-25 06:52 | NUR ---
PRINTED CIRCUIT BOARDS SOLDER LEVELER CLOSING NOTES PT RESTING IN BED AT THIS TIME, HOB 45 DEGREES ELEVATED, EASILY AROUSABLE. A/O X1, ORIENT TO PERSON ONLY, MUMBLES WORDS. AFEBRILE, NO ACUTE DISTRESS NOTED. STABLE ON ROOM AIR WITHOUT ANY DIFFICULTY. IV ACCESS ON CAROLYNN MIDLINE G#18 RUNNING WITH D5W AT 75ML/HR, PATENT AND FLUSHING WELL. TELE MONITORING IS SHOWING SR @ 111S. INTACT FLEMING CATHETER DRAINED CLOUDY YELLOW URINE. NOT SHOWING ANY PAIN NOR DISCOMFORT AT THE MOMENT. SAFETY MEASURES MAINTAINED: KEPT BED IN LOCKED AND LOWEST POSITION, SIDE RAILS UP X3, BED ALARM ON, CALL LIGHT AND TRAY TABLE WITHIN EASY REACH. WAIL ENDORSE CARE TO DAY SHIFT NURSE.
[2022-11-25 07:06] LABS: ALBUMIN 1.5 g/dL (3.4-5.0); BILIRUBIN,TOTAL 0.3 mg/dL (0.2-1.0); CALCIUM, SERUM 8.8 mg/dL (8.5-10.1); CREATININE 1.1 mg/dL (0.6-1.3); MAGNESIUM 1.7 mg/dL (1.8-2.4); PHOSPHORUS 3.3 mg/dL (2.5-4.9); TOTAL PROTEIN, SERUM 7.3 g/dL (6.4-8.2)
--- NOTE | 2022-11-25 07:55 | NUR ---
FLARER OPENING NOTES RECEIVED PT RESTING IN BED WITH HOB 45 DEGREES ELEVATED. STABLE ON ROOM AIR WITH NO S/S OF DISTRESS OR SOB. BREATHING EVEN AND UNLABORED. IV ACCESS ON CAROLYNN MIDLINE G#18 RUNNING WITH D5W AT 75ML/HR, PATENT AND FLUSHING WELL. FLEMING CATHETER INTACT AND DRAINING CLOUDY YELLOW URINE. NOT SHOWING ANY PAIN NOR DISCOMFORT AT THE MOMENT. SAFETY MEASURES MAINTAINED: KEPT BED IN LOCKED AND LOWEST POSITION, SIDE RAILS UP X3, BED ALARM ON, CALL LIGHT AND TABLE WITHIN EASY REACH. WILL CONTINUE TO MONITOR.
[2022-11-25 08:00] VITALS: BP 123/74
[2022-11-25] MEDS: ASPIRIN 81 MG TAB.CHEW PO SCH (09:00)
[2022-11-25] MEDS: PANTOPRAZOLE 40 MG VIAL IV SCH (09:00)
[2022-11-25] MEDS: MUPIROCIN OINT 2% 22 GM TUBE NS SCH ×2 (09:00→21:23)
[2022-11-25] MEDS: THERAHONEY GEL 1.5 OZ TUBE TP SCH (09:00)
--- NOTE | 2022-11-25 09:15 | NUR ---
RN CLOSING PER SPEECH THERAPIST SPENCER, PATIENT FAILED SWALLOW EVAL AND IS TO REMAIN NPO.
[2022-11-25] MEDS ORDERED: Magnesium 1GM/D5W 100ML PREMIX 100 ML IV SCH (11:00)
--- NOTE | 2022-11-25 11:20 | NUR ---
RN NOTES PER EDNA GAGE NP, FAMILY WILL BE CONTACTED REGARDING G-TUBE PLACEMENT.
[2022-11-25 12:00] VITALS: BP 110/70
[2022-11-25] MEDS: POTASSIUM CL. PREMIX PERIPHER. 50 ML IV SCH ×5 (12:04→21:23)
--- NOTE | 2022-11-25 13:08 | NUR ---
RN NOTES TELEPHONE CONSENT RECEIVED FOR PEG PLACEMENT FROM TUNDE CERNA (SISTER).
[2022-11-25] MEDS: LEVETIRACETAM (500MG) 500 MG in IV NS 0.9% 100 ML IV SCH (13:55)
[2022-11-25] MEDS: ENOXAPARIN SODIUM 40 MG/0.4 ML DISP.SYRIN SQ SCH (13:56)
[2022-11-25 16:00] VITALS: BP 115/79
[2022-11-25] MEDS: CEFEPIME 1 GM in IV D5W 50 ML IV SCH (16:05)
[2022-11-25] MEDS: VANCOMYCIN 1 GM in IV D5W 250ml IV SCH (18:21)
--- NOTE | 2022-11-25 19:32 | NUR ---
POWER LINEWORKER CLOSING NOTES PT RESTING IN ASLEEP WITH HOB 45 DEGREES ELEVATED. STABLE ON ROOM AIR WITH NO S/S OF DISTRESS OR SOB. BREATHING EVEN AND UNLABORED. SATING AT 95%. PATIENT REFUSES NASAL CANNULA. IV ACCESS ON CAROLYNN MIDLINE G#18 RUNNING WITH D5W AT 75ML/HR AND VANCO WITH NS. FLEMING CATHETER INTACT AND DRAINING CLOUDY YELLOW URINE. NOT SHOWING ANY PAIN NOR DISCOMFORT AT THE MOMENT. ALL DUE MEDS GIVEN. SAFETY MEASURES MAINTAINED: KEPT BED IN LOCKED AND LOWEST POSITION, SIDE RAILS UP X3, BED ALARM ON, CALL LIGHT AND TABLE WITHIN EASY REACH. WILL ENDORSE TO ONCOMING SHIFT FOR SARAI.
--- NOTE | 2022-11-25 19:40 | NUR ---
RN NOTE TELEPHONE CONSENT OBTAINED FROM PT'S SISTER CHEL FOR PEG PLACEMENT, ANESTHESIA, AND BLOOD TRANSFUSION CONSENTS. CONSENTS PLACED IN CHART.
[2022-11-25 20:00] VITALS: BP 136/67
[2022-11-25] MEDS: IV D5W 1,000 ML IV PRN (21:32)
--- NOTE | 2022-11-25 21:57 | NUR ---
ASSISTANT FINANCE DIRECTOR OPENING NOTE PT RECEIVED IN BED, AWAKE, UNABLE TO ANSWER WHEN ASSESSING FOR NEURO STATUS; OPENS EYES SPONTANEOUSLY; ONLY ABLE TO ANSWER YES OR NO QUESTIONS. PT ON RA WITH CURRENT O2SAT OF 96% WITH NO S/S OF RESP DISTRESS, NO SOB OR COUGH, NON-LABORED AND EQUAL BREATHING. PT ATTACHED TO TELE MONITOR; ST WITH CURRENT HR OF 114. CAROLYNN MIDLINE INTACT AND PATENT, FLUSHES EASILY WITH NO RESISTANCE; LAST BAG OF KCL INFUSED; D5W INFUSING AT 75 ML/HR. BED IN LOWEST POSITION, CALL LIGHT WITHIN REACH, SIDE RAILS UP X3, HOB ELEVATED. WILL CONTINUE TO MONITOR THROUGHOUT THE NIGHT.
[2022-11-26] VITALS: BP 131/69
[2022-11-26] MEDS: LEVETIRACETAM (500MG) 500 MG in IV NS 0.9% 100 ML IV SCH ×3 (01:19→23:30)
[2022-11-26 04:00] VITALS: BP 155/77
--- NOTE | 2022-11-26 07:33 | NUR ---
MEDICAL RECEPTIONIST ASSISTANT OPENING NOTE PT RECEIVED IN BED, AWAKE. A/O X1-2. OPENS EYES SPONTANEOUSLY. PT ON RA WITH NO S/S OF RESP DISTRESS OR NO SOB. BREATHING EVEN AND UNLABORED. CAROLYNN MIDLINE INTACT AND PATENT. BED IN LOWEST POSITION, CALL LIGHT WITHIN REACH, SIDE RAILS UP X3, HOB ELEVATED. WILL CONTINUE TO MONITOR.
[2022-11-26 07:40] LABS: CALCIUM, SERUM 9.3 mg/dL (8.5-10.1); MAGNESIUM 2.1 mg/dL (1.8-2.4); POTASSIUM 3.5 mmol/L (3.5-5.1)
--- NOTE | 2022-11-26 07:44 | NUR ---
NOVELTY WORKER CLOSING NOTE PT REMAINS IN BED, AWAKE, NO CHANGES TO NEURO STATUS. APPLIED 2L NC TO PT DURING THE NIGHT WITH O2SAT OF 91% AT ONE POINT WITH NO SIGNS OF RESP DISTRESS. ATTACHED TO TELE MONITOR, ST WITH HR RANGING FROM 112-121. FLEMING INTACT AND PATENT, DRAINING CLOUDY AND YELLOW URINE. CAROLYNN MIDLINE INTACT AND PATENT, FLUSHES EASILY WITH NO RESISTANCE; D5W INFUSING AT 75 ML/HR. WOUNDS CLEANSED AND NEW DRESSINGS APPLIED. ALL DUE MEDS ADMINISTERED DURING THE NIGHT. BED IN LOWEST POSITION, CALL LIGHT WITHIN REACH, SIDE RAILS UP X3. WILL ENDORSE TO DAYSHIFT NURSE TO CONTINUE CARE.
[2022-11-26] MEDS: IV D5W 1,000 ML IV PRN ×2 (07:52→22:40)
[2022-11-26 08:00] VITALS: BP 125/76
[2022-11-26] MEDS: PANTOPRAZOLE 40 MG VIAL IV SCH (08:40)
[2022-11-26] MEDS: ASPIRIN 81 MG TAB.CHEW PO SCH (09:00)
[2022-11-26] MEDS: MUPIROCIN OINT 2% 22 GM TUBE NS SCH ×2 (09:23→20:37)
[2022-11-26] MEDS: THERAHONEY GEL 1.5 OZ TUBE TP SCH (09:23)
--- NOTE | 2022-11-26 09:24 | NUR ---
RN NOTES PATIENT REMOVED FLEMING. EDNA GAGE SENIOR HRIS ANALYST NOTIFIED. APPROVED USE OF RESTRAINTS.
--- NOTE | 2022-11-26 09:48 | NUR ---
RN NOTES MIDLINE NOT FLUSHING. PACKING CLERK REMOVED OCCLUSION. NS BOLUS 250ML RUNNING.
[2022-11-26] MEDS ORDERED: LORAZEPAM INJ 2 MG/ML VIAL IV PRN (10:30)
[2022-11-26] MEDS ORDERED: MORPHINE SULFATE INJ 2 MG/ML DISP.SYRIN IV PRN (10:30)
--- NOTE | 2022-11-26 11:04 | NUR ---
RN NOTES WILL HOLD ON RESTRAINTS. PATIENT EXHIBITING SIGNS OF PAIN. SPOKE TO EDNA GAGE REGARDING PAIN MEDS. MORPHINE AND ATIVAN ORDERED.
[2022-11-26 12:00] VITALS: BP 123/67
[2022-11-26] MEDS: ENOXAPARIN SODIUM 40 MG/0.4 ML DISP.SYRIN SQ SCH (12:24)
[2022-11-26] MEDS: CEFEPIME 1 GM in IV D5W 50 ML IV SCH (15:26)
[2022-11-26 16:00] VITALS: BP 95/62
--- NOTE | 2022-11-26 17:49 | NUR ---
RN NOTES FOR CATHETER BLADDER SCANNER SHOWS 570 ML OF URINE IN BLADDER. HOWEVER, A SMALL AMOUNT OF BLOOD IS STILL DISCHARGING FROM PENIS. EDNA GAGE SHAREPOINT MANAGER NOTIFIED.
--- NOTE | 2022-11-26 18:03 | NUR ---
RN NOTES ON CATHETER EDNA GAGE SALES REPRESENTATIVE PRINTING SUPPLIES ORDERED FLEMING TO BE REINSERTED. RESISTANCE AND BLEEDING ON INSERTION. REMOVED AND WILL FOLLOW UP WITH SALES REPRESENTATIVE PRINTING SUPPLIES.
--- NOTE | 2022-11-26 18:18 | NUR ---
RN NOTES ON CATHETER 3-WAY CATHETER INSERTED BY CHARGE NURSE
[2022-11-26 20:00] VITALS: BP 117/71
--- NOTE | 2022-11-26 20:00 | NUR ---
RN NOTE RECEIVED PT IN BED, ASLEEP AT THIS TIME, EASILY AROUSABLE WITH TACTILE STIMULI. RESPIRATIONS EVEN AND UNLABORED. NO APPRENT DISCOMFORT NOTED AT THIS TIME. PT ON 2L O2 VIA NC, WELL INNA. NO SOB/NOACUTE RESP DISTRESS. PT AFEBRILE. D5W AT 75ML/HR INFUSING ON CAROLYNN ML, WELL TOLERATED, NO S/SX OF INFX NOTED. FLEMING CATH IN PLACED, PATENT DRAINING DARK YELLOW URINE BY GRAVITY. HOB ELEVATED. CALL LIGHT WITHIN REACH. WILL CONT POC
--- NOTE | 2022-11-26 20:11 | NUR ---
ACCOUNT DEVELOPMENT ASSOCIATE CLOSING NOTE PT REMAINS IN BED ASLEEP. ON 2.5L NC O2SAT OF 100%. NO SIGNS OF RESP DISTRESS. BREATHING EVEN AND UNLABORED. ATTACHED TO TELE MONITOR WITH ST OF 105. NEWLY INSERTED 3-WAY FLEMING INTACT AND PATENT, DRAINING CLOUDY AND YELLOW URINE. CAROLYNN MIDLINE INTACT AND PATENT WITH D5W INFUSING AT 75 ML/HR. BILATERAL SOFT WRIST RESTRAINTS IN PLACE. ALL DUE MEDS ADMINISTERED DURING THE NIGHT. SAFETY PRECAUTIONS IN PLACE WITH BED IN LOWEST POSITION, CALL LIGHT WITHIN REACH, SIDE RAILS UP X3. WILL ENDORSE TO ONCOMING SHIFT FOR SARAI.
[2022-11-27] VITALS (7 sets, daily range): BP systolic 95–118; BP diastolic 60–72
--- NOTE | 2022-11-27 06:28 | NUR ---
RN NOTE PT NOTED WITH CO PAIN 8/10 PS, FACIAL GRIMACING, MOANING, AND HR ST 125 AT THIS TIME. PRN MEDICATION GIVEN ORDERED. WILL REASSESS PT
--- NOTE | 2022-11-27 06:55 | NUR ---
RN NOTE PT REMAINS IN STABLE CONDITION. AFEBRILE. ON 2L O2 VIA NC, WELL TOLERATED. NANY CUTE RESP DISTRESS NOTED. ALL DUE MEDS GIVEN ORDERED. KEPT PT CLEAN, DRY, AND COMFORTABLE AT ALL TIMES. HOB ELEVATED. WILL ENDORSE TO AM SHIFT NURSE
[2022-11-27 06:59] LABS: CALCIUM, SERUM 8.9 mg/dL (8.5-10.1); CARBON DIOXIDE 22 mmol/L (21-32); CHLORIDE 106 mmol/L (98-107); GLUCOSE 96 mg/dL (74-106); POTASSIUM 3.2 mmol/L (3.5-5.1); SODIUM SERUM 138 mmol/L (136-145); UREA NITROGEN, BLOOD 10 mg/dL (7-18)
--- NOTE | 2022-11-27 07:39 | NUR ---
telesales professional opening note received pt awake in bed. pt on 2 l nasal cannula saturating above 93%. pt has garbled speech. pt is on tele monitor sinus tachycardia 125. pt has lemons cathether. yellow color draining to gravity. right upper arm midline intact, patent and flushing well. pt on bilateral soft wrist restraints in place. no skin or circulation issues noted at this time. all safety measures in place. call light within reach. bed locked at lowest position. side rails up x2.
[2022-11-27] MEDS: ASPIRIN 81 MG TAB.CHEW PO SCH (08:00)
[2022-11-27] MEDS: POTASSIUM CL. PREMIX PERIPHER. 50 ML IV SCH ×4 (08:03→12:14)
[2022-11-27] MEDS: PANTOPRAZOLE 40 MG VIAL IV SCH (08:04)
[2022-11-27] MEDS: THERAHONEY GEL 1.5 OZ TUBE TP SCH (08:19)
[2022-11-27] MEDS: MUPIROCIN OINT 2% 22 GM TUBE NS SCH ×2 (08:19→20:39)
[2022-11-27] MEDS: ENOXAPARIN SODIUM 40 MG/0.4 ML DISP.SYRIN SQ SCH (10:54)
[2022-11-27] MEDS: IV D5/ 0.9% NACL 1,000 ML IV PRN (11:06)
[2022-11-27] MEDS: LEVETIRACETAM (500MG) 500 MG in IV NS 0.9% 100 ML IV SCH ×2 (12:10→23:56)
[2022-11-27 13:51] LABS: BASOPHILS # (AUTO) 0.1 K/uL (0.0-0.2); BASOPHILS % (AUTO) 0.4 % (0.0-2.0); EOSINOPHILS % (AUTO) 2.8 % (0.0-6.0); HEMATOCRIT 27 % (39-51); HEMOGLOBIN 8.4 g/dL (13.5-17.5); LYMPHOCYTES # (AUTO) 1.4 K/uL (0.8-4.8); LYMPHOCYTES % (AUTO) 12.1 % (20.0-44.0); MEAN CORPUSCULAR HGB CONC 31 g/dl (31.0-36.0); MEAN CORPUSCULAR VOLUME 82 fL (80-96); MONOCYTES # (AUTO) 0.9 K/uL (0.1-1.30); MONOCYTES % (AUTO) 7.9 % (2.0-12.0); NEUTROPHILS % (AUTO) 76.8 % (43.0-81.0); PLATELET COUNT (AUTO) 447 K/uL (150-450); RED BLOOD CELL COUNT(AUTO) 3.28 MIL/uL (4.5-6.0); WHITE BLOOD COUNT (AUTO) 11.7 K/uL (4.3-11.0)
[2022-11-27] MEDS: CEFEPIME 1 GM in IV D5W 50 ML IV SCH (14:31)
--- NOTE | 2022-11-27 18:56 | NUR ---
ELECTRONIC WARFARE OFFICER CLOSING NOTE PT ALERT AND ORIENTED X1-2. PT ON 2 L NASAL CANNULA SATURATING AT 99%.PT HAS GARBLED SPEECH. PT ON TELE MONITOR CURRENTLY AT SINUS TACHYCARDIA 125. NO COMPLAINTS OF PAIN OR DISCOMFORT NOTED AT THIS TIME. PT HAS FLEMING CATHEHTER.YELLOW COLOR DRAINING TO GRAVITY. RUPPER ARM MIDLINE, INTACT, PATENT AND FLUSHES WELL. PT ON BILATERAL SOFT WRIST RESTRAINTS. NO SKIN OR CIRCUALTION ISSUES NOTED AT THIS TIME. ALL SAFETY MEASURES IN PLACE. CALL LIGHT WITHIN REACH. BED LOCKED AT LOWEST POSITION. SIDE RAILS UPX2. BED ALARM ON.ENDORSED TO PRODUCT SUPPORT ANALYST RN FOR CONTUITY OF CARE
--- NOTE | 2022-11-27 19:30 | NUR ---
DATA COLLECTION ASSOCIATE OPENING NOTE RECEIVED PATIENT FROM AM NURSE; PATIENT IS A/O X 1-2; STABLE ON 2LPM O2 VIA NASAL CANNULA SATURATING WELL; HOOKED TO WARP KNITTER CURRENTLY READING SINUS TACHYCARDIA; WITH FLEMING CATHETER IN PLACE DRAINING TO LIGHT YELLOW COLORED URINE; NOTED WITH BILATERAL SOFT WRIST RESTRAINTS FOR SAFETY PURPOSES, WILL CHECK PATIENT'S CIRCULATION ACCORDINGLY; WITH MIDLINE ACCESS AT CAROLYNN RUNNING WITH D5NS AT 50ML/HR; SAFETY MEASURES IMPLEMENTED, BED IN LOW AND LOCKED POSITION, SIDE RAILS UP X 3, CALL LIGHT WITHIN REACH; WILL CONTINUE TO MONITOR THROUGHOUT SHIFT
[2022-11-28] VITALS: BP 112/77
[2022-11-28 04:00] VITALS: BP 124/75
--- NOTE | 2022-11-28 07:16 | NUR ---
STAGE TECHNICIAN CLOSING NOTE PATIENT IS A/O X 1-2; STABLE ON 2LPM O2 VIA NASAL CANNULA SATURATING WELL; HOOKED TO LOG MANAGER CURRENTLY READING SINUS RHYTHM; WITH FLEMING CATHETER IN PLACE DRAINING TO LIGHT YELLOW COLORED URINE APPROXIMATELY 1100ML; NOTED WITH BILATERAL SOFT WRIST RESTRAINTS FOR SAFETY PURPOSES, CHECKED PATIENT'S CIRCULATION ACCORDINGLY; WITH MIDLINE ACCESS AT CAROLYNN RUNNING WITH D5NS AT 50ML/HR; ADMINISTERED MEDICATIONS PRESCRIBED; PATIENT'S NEEDS ATTENDED; MONITORED PATIENT ACCORDINGLY; SAFETY MEASURES IMPLEMENTED, BED IN LOW AND LOCKED POSITION, SIDE RAILS UP X 3, CALL LIGHT WITHIN REACH; WILL ENDORSE TO AM NURSE FOR SARAI.
--- NOTE | 2022-11-28 07:17 | NUR ---
MANAGER MEDICAL AFFAIRS OPENING NOTES: RECEIVED PT IN BED AWAKE, ALERT AND ORIENTED X1-2. NO SOB OR CARDIAC DISTRESS NOTED ON LINE LEADER WITH CURRENT READING OF SINUS TACHY 110S. IV ACCESS ON CAROLYNN ML PATENT INTACT AND FLUSHING IV FLUIDS OF D5 NS @ 50ML/HR. MAINTAINED NPO. FC NOTED WITH CLOUDY YELLOW COLORED URINE VIA GRAVITY. SAFETY MEASURES MAINTAINED: BED LOCKED AND IN LOWEST POSITION SIDERAILS UP X 2 CALL LIGHT IN EASY REACH AND WILL MONITOR PT ACCORDINGLY.
[2022-11-28 08:00] VITALS: BP 106/69
[2022-11-28] MEDS: PROSOURCE / PROSTAT (PYXIS) 30 ML UDC GT SCH ×2 (09:00→16:50)
[2022-11-28] MEDS: ASPIRIN 81 MG TAB.CHEW PO SCH (09:00)
--- NOTE | 2022-11-28 09:00 | NUR ---
RN NOTES: PT FOR NGT TUBE PLACEMENT PER DR GAGE. ATTEMPTED TO INSERT AND INFORMED DR GAGE THATS CURRENTLY IN THE UNIT. PER DR GAGE DC NGT INSERTION.
[2022-11-28 09:27] LABS: CALCIUM, SERUM 9.3 mg/dL (8.5-10.1); CARBON DIOXIDE 26 mmol/L (21-32); CHLORIDE 107 mmol/L (98-107); CREATININE 1.1 mg/dL (0.6-1.3); GLUCOSE 98 mg/dL (74-106); SODIUM SERUM 140 mmol/L (136-145); UREA NITROGEN, BLOOD 10 mg/dL (7-18)
[2022-11-28] MEDS: MUPIROCIN OINT 2% 22 GM TUBE NS SCH (09:29)
[2022-11-28] MEDS ORDERED: JEVITY 1.2 CAL 1,000 ML BOTTLE GT PRN (09:30)
[2022-11-28] MEDS: THERAHONEY GEL 1.5 OZ TUBE TP SCH (09:30)
[2022-11-28] MEDS: PANTOPRAZOLE 40 MG VIAL IV SCH (09:30)
[2022-11-28] MEDS: ENOXAPARIN SODIUM 40 MG/0.4 ML DISP.SYRIN SQ SCH (11:35)
[2022-11-28 12:00] VITALS: BP 125/69
[2022-11-28] MEDS: LEVETIRACETAM (500MG) 500 MG in IV NS 0.9% 100 ML IV SCH (12:30)
--- NOTE | 2022-11-28 14:58 | NUR ---
RN NOTES: RECEIVED A CALL FROM MIRNA HINDS (SURGERY) PT WILL HAVE GT PLACEMENT TOMORROW 11/29 AT 3;30 PM. NPO AFTER 7AM, SECURE CONSENTS AND PRE OP CHECK LIST. ORDERS NOTED AND CARRIED OUT.
[2022-11-28] MEDS: CEFEPIME 1 GM in IV D5W 50 ML IV SCH (15:05)
[2022-11-28 16:00] VITALS: BP 97/57
[2022-11-28] MEDS: IV D5/ 0.9% NACL 1,000 ML IV PRN (18:49)
--- NOTE | 2022-11-28 19:16 | NUR ---
RN NOTE RECEIVED PT FOR CONTINUITY OF CARE. PATIENT A/OX1-2 IN NO S/SX OF ACUTE DISTRESS AT THIS TIME; CURRENTLY ON 2L OF O2 VIA N; WITH 02 SAT >95% AT THIS TIME.WITH IV ACCESS R UA ML; PATENT, INTACT AND FLUSHING WELL. WITH RUNNING IV FLUIDS ORDERED. WITH BILATERAL SOFT RESTRAINTS IN PLACED, MONITORED AND ASSESSED PER PROTOCOL. FLEMING CATH IN PLACE, MODERATE URINE OUTPUT NOTED. WILL ENSURE SAFETY MEASURES WITHIN THE SHIFT. PATIENT BED ALARM IS ON. HEAD OF BED ELEVATED. BED IS LOCKED, IN LOWEST POSITION AND SIDE RAILS UP. CALL LIGHT WITHIN REACH OF THE PATIENT. WILL CONTINUE TO MONITOR AND REASSESS FOR ANY CHANGES AND WILL CARRY OUT ANY ONGOING AND ACTIVE MD ORDER.
--- NOTE | 2022-11-28 19:30 | NUR ---
DUST BOX WORKER CLOSING NOTES: PT IN BED AWAKE, ALERT AND ORIENTED X1-2. NO SOB OR CARDIAC DISTRESS NOTED ON SERVICES ENGINEER WITH CURRENT READING OF SINUS @87BPM. IV ACCESS ON CAROLYNN ML PATENT INTACT AND FLUSHING IV FLUIDS OF D5 NS @ 50ML/HR. MAINTAINED NPO. WOUND CARE DONE. FC NOTED WITH CLOUDY YELLOW COLORED URINE VIA GRAVITY. SAFETY MEASURES MAINTAINED: BED LOCKED AND IN LOWEST POSITION SIDERAILS UP X 2 CALL LIGHT IN EASY REACH AND WILL MONITOR PT ACCORDINGLY. ENDORSED FOR SARAI.
[2022-11-28 20:00] VITALS: BP 105/71
[2022-11-29] VITALS: BP 97/64
[2022-11-29] MEDS: LEVETIRACETAM (500MG) 500 MG in IV NS 0.9% 100 ML IV SCH ×3 (00:09→23:34)
[2022-11-29 04:00] VITALS: BP 139/71
--- NOTE | 2022-11-29 06:45 | NUR ---
RN CLOSING NOTE PATIENT REMAINS IN ROOM IN NO SIGNS OF RESPIRATORY DISTRESS, PATIENT STILL ON 2L OF 02 VIA NC; TOLERATING WELL SATURATING @ >95% SP02. SAFETY MEASURES IMPLEMENTED, BED IN LOWEST POSITION, LOCKED, SIDE RAILS UP, CALL LIGHT WITHIN REACH. ALL NEEDS AND ORDERS ADDRESSED DURING THE SHIFT. IV ACCESS MAINTAINED INTACT, SECURED AND FLUSHING WELL. IF FLUIDS RUNNING ORDERED. ALL DUE MEDS GIVEN ORDERED & SCHEDULED ; PATIENT TOLERATED WELL. PATIENT KEPT CLEAN AND COMFORTABLE WITHIN THE SHIFT. PLAN: FOR GTUBE PLACEMENT TODAY; CONSENT SECURED. PATIENT ENDORSED TO INCOMING SHIFT RN WITH STABLE VITAL SIGN AND FOR CONTINUITY OF CARE.
[2022-11-29 07:11] LABS: BASOPHILS # (AUTO) 0.1 K/uL (0.0-0.2); BASOPHILS % (AUTO) 0.9 % (0.0-2.0); HEMATOCRIT 28 % (39-51); HEMOGLOBIN 8.2 g/dL (13.5-17.5); LYMPHOCYTES # (AUTO) 2.2 K/uL (0.8-4.8); LYMPHOCYTES % (AUTO) 15.4 % (20.0-44.0); MEAN CORPUSCULAR HGB CONC 30 g/dl (31.0-36.0); MEAN CORPUSCULAR VOLUME 85 fL (80-96); MONOCYTES # (AUTO) 1.1 K/uL (0.1-1.30); MONOCYTES % (AUTO) 7.6 % (2.0-12.0); NEUTROPHILS # (AUTO) 10.3 K/uL (1.8-8.9); NEUTROPHILS % (AUTO) 74.1 % (43.0-81.0); PLATELET COUNT (AUTO) 458 K/uL (150-450); RED BLOOD CELL COUNT(AUTO) 3.23 MIL/uL (4.5-6.0)
[2022-11-29 07:13] LABS: CALCIUM, SERUM 9.5 mg/dL (8.5-10.1); CARBON DIOXIDE 24 mmol/L (21-32); CHLORIDE 109 mmol/L (98-107); CREATININE 1.1 mg/dL (0.6-1.3); GLUCOSE 86 mg/dL (74-106); POTASSIUM 3.9 mmol/L (3.5-5.1); SODIUM SERUM 140 mmol/L (136-145); UREA NITROGEN, BLOOD 10 mg/dL (7-18)
--- NOTE | 2022-11-29 07:43 | NUR ---
SUPERVISOR TRAVEL INFORMATION CENTER OPENING NOTE PT ALERT AND ORIENTED X1-2. PT ON 2 L NASAL CANNULA SATURATING AT 99%.PT HAS GARBLED SPEECH. PT ON TELE MONITOR CURRENTLY AT SINUS TACHYCARDIA 114. NO COMPLAINTS OF PAIN OR DISCOMFORT NOTED AT THIS TIME. PT HAS FLEMING CATHEHTER.YELLOW COLOR DRAINING TO GRAVITY. RUPPER ARM MIDLINE, INTACT, PATENT AND FLUSHES WELL. PT ON BILATERAL SOFT WRIST RESTRAINTS. NO SKIN OR CIRCUALTION ISSUES NOTED AT THIS TIME. ALL SAFETY MEASURES IN PLACE. CALL LIGHT WITHIN REACH. BED LOCKED AT LOWEST POSITION. SIDE RAILS UPX2. BED ALARM ON.
[2022-11-29 08:00] VITALS: BP 107/73
[2022-11-29] MEDS: PROSOURCE / PROSTAT (PYXIS) 30 ML UDC GT SCH ×2 (08:09→16:00)
[2022-11-29] MEDS: ASPIRIN 81 MG TAB.CHEW PO SCH (08:09)
[2022-11-29] MEDS: PANTOPRAZOLE 40 MG VIAL IV SCH (09:19)
[2022-11-29] MEDS: ENOXAPARIN SODIUM 40 MG/0.4 ML DISP.SYRIN SQ SCH (11:30)
--- NOTE | 2022-11-29 11:51 | NUR ---
rn note lovenox not given due to PEG placement later today
[2022-11-29] MEDS: THERAHONEY GEL 1.5 OZ TUBE TP SCH (11:56)
[2022-11-29 12:00] VITALS: BP 98/70
[2022-11-29] MEDS: CEFEPIME 1 GM in IV D5W 50 ML IV SCH (15:42)
[2022-11-29 16:00] VITALS: BP 94/65
--- NOTE | 2022-11-29 16:10 | NUR ---
ida note pt left for PEG tube placement Addendum: 11/29/22 at 1611 by SAMMIE HAYWOOD RN notified sister of surgery. left a voicemail
--- NOTE | 2022-11-29 17:58 | NUR ---
rn note pt returned from peg tube placement. pt tolerated well. per surgical nurse report start tube feeding in AM
[2022-11-29] MEDS: IV D5/ 0.9% NACL 1,000 ML IV PRN (18:43)
--- NOTE | 2022-11-29 19:10 | NUR ---
RN NOTE RECEIVED PT FOR CONTINUITY OF CARE. PATIENT A/OX1-2 IN NO S/SX OF ACUTE DISTRESS AT THIS TIME; CURRENTLY ON 2L OF O2 VIA N; WITH 02 SAT >95% AT THIS TIME.PT S/P PEG PLACEMENT TODAY. WITH IV ACCESS R UA ML; PATENT, INTACT AND FLUSHING WELL. WITH RUNNING IV FLUIDS ORDERED. WITH BILATERAL SOFT RESTRAINTS IN PLACED, MONITORED AND ASSESSED PER PROTOCOL. FLEMING CATH IN PLACE, MODERATE URINE OUTPUT NOTED. WILL ENSURE SAFETY MEASURES WITHIN THE SHIFT. PATIENT BED ALARM IS ON. HEAD OF BED ELEVATED. BED IS LOCKED, IN LOWEST POSITION AND SIDE RAILS UP. CALL LIGHT WITHIN REACH OF THE PATIENT. WILL CONTINUE TO MONITOR AND REASSESS FOR ANY CHANGES AND WILL CARRY OUT ANY ONGOING AND ACTIVE MD ORDER.
--- NOTE | 2022-11-29 19:34 | NUR ---
SOCIAL WORKER CLINICAL CLOSING NOTE PT ALERT AND ORIENTED X1-2. PT ON 2 L NASAL CANNULA SATURATING ABOVE 93%.PT HAS GARBLED SPEECH. PT ON TELE MONITOR CURRENTLY AT SINUS TACHYCARDIA. NO COMPLAINTS OF PAIN OR DISCOMFORT NOTED AT THIS TIME. PT HAS FLEMING CATHEHTER.YELLOW COLOR DRAINING TO GRAVITY. RUPPER ARM MIDLINE, INTACT, PATENT AND FLUSHES WELL. PT ON BILATERAL SOFT WRIST RESTRAINTS. PT NOW HAS GTUBE INTACT. CLEAN AND DRY DRESSING. PER OKAY TO RESUME TUBE FEEDING 11/30/2022. NO SKIN OR CIRCUALTION ISSUES NOTED AT THIS TIME. ALL SAFETY MEASURES IN PLACE. CALL LIGHT WITHIN REACH. BED LOCKED AT LOWEST POSITION. SIDE RAILS UPX2. BED ALARM ON.ENDORSED TO MAIL PROCESSOR RN FOR CONTUITY OF CARE
[2022-11-29 20:00] VITALS: BP 115/66
[2022-11-30] VITALS: BP 114/70
[2022-11-30 04:00] VITALS: BP 121/71
--- NOTE | 2022-11-30 06:56 | NUR ---
RN CLOSING NOTE PATIENT REMAINS IN ROOM IN NO SIGNS OF RESPIRATORY DISTRESS, PATIENT STILL ON 2L OF 02 VIA NC; TOLERATING WELL SATURATING @ >95% SP02. SAFETY MEASURES IMPLEMENTED, BED IN LOWEST POSITION, LOCKED, SIDE RAILS UP, CALL LIGHT WITHIN REACH. ALL NEEDS AND ORDERS ADDRESSED DURING THE SHIFT. IV ACCESS MAINTAINED INTACT, SECURED AND FLUSHING WELL. IF FLUIDS RUNNING ORDERED. ALL DUE MEDS GIVEN ORDERED & SCHEDULED ; PATIENT TOLERATED WELL. PATIENT KEPT CLEAN AND COMFORTABLE WITHIN THE SHIFT. PLAN: TO START FEEDING TODAY. PATIENT ENDORSED TO INCOMING SHIFT RN WITH STABLE VITAL SIGN AND FOR CONTINUITY OF CARE.
[2022-11-30 08:00] VITALS: BP 119/75
[2022-11-30] MEDS: ASPIRIN 81 MG TAB.CHEW PO SCH (08:31)
[2022-11-30] MEDS: PROSOURCE / PROSTAT (PYXIS) 30 ML UDC GT SCH ×2 (08:31→16:46)
[2022-11-30] MEDS: THERAHONEY GEL 1.5 OZ TUBE TP SCH (08:32)
[2022-11-30] MEDS: PANTOPRAZOLE 40 MG VIAL IV SCH (08:32)
[2022-11-30] MEDS: LEVETIRACETAM (500MG) 500 MG in IV NS 0.9% 100 ML IV SCH ×2 (11:35→23:39)
[2022-11-30] MEDS: ENOXAPARIN SODIUM 40 MG/0.4 ML DISP.SYRIN SQ SCH (11:36)
[2022-11-30] MEDS: IV D5/ 0.9% NACL 1,000 ML IV PRN (11:38)
[2022-11-30] MEDS ORDERED: ASPIRIN 81 MG TAB.CHEW GT SCH (11:46)
[2022-11-30 12:00] VITALS: BP 128/75
[2022-11-30] MEDS: CEFEPIME 1 GM in IV D5W 50 ML IV SCH (14:09)
[2022-11-30 14:37] LABS: BASOPHILS # (AUTO) 0.1 K/uL (0.0-0.2); BASOPHILS % (AUTO) 0.7 % (0.0-2.0); EOSINOPHILS % (AUTO) 1.7 % (0.0-6.0); HEMATOCRIT 24 % (39-51); HEMOGLOBIN 7.6 g/dL (13.5-17.5); LYMPHOCYTES # (AUTO) 1.7 K/uL (0.8-4.8); LYMPHOCYTES % (AUTO) 13.1 % (20.0-44.0); MEAN CORPUSCULAR HGB CONC 31 g/dl (31.0-36.0); MEAN CORPUSCULAR VOLUME 83 fL (80-96); MONOCYTES # (AUTO) 0.8 K/uL (0.1-1.30); MONOCYTES % (AUTO) 6.6 % (2.0-12.0); NEUTROPHILS # (AUTO) 9.9 K/uL (1.8-8.9); NEUTROPHILS % (AUTO) 77.9 % (43.0-81.0); PLATELET COUNT (AUTO) 437 K/uL (150-450); RED BLOOD CELL COUNT(AUTO) 2.93 MIL/uL (4.5-6.0); WHITE BLOOD COUNT (AUTO) 12.7 K/uL (4.3-11.0)
[2022-11-30 14:46] LABS: CALCIUM, SERUM 9.1 mg/dL (8.5-10.1); CARBON DIOXIDE 21 mmol/L (21-32); CHLORIDE 111 mmol/L (98-107); GLUCOSE 99 mg/dL (74-106); POTASSIUM 3.7 mmol/L (3.5-5.1); SODIUM SERUM 140 mmol/L (136-145); UREA NITROGEN, BLOOD 10 mg/dL (7-18)
[2022-11-30 16:00] VITALS: BP 95/62
[2022-11-30 16:02] LABS: EOSINOPHILS % (MANUAL) 2 % (0-4); LYMPHOCYTES % (MANUAL) 24 % (16-48); MONOCYTES % (MANUAL) 4 % (0-11.0); NEUTROPHILS % (MANUAL) 70 (42-76)
--- NOTE | 2022-11-30 18:30 | NUR ---
END OF SHIFT SUMMARY PATIENT IS A/O X1. ST ON TELE. 0N 02 AT 1 LPM VIA NC, SATURATING 100%. FLEMING CATHETER IN PLACE, DRAINING WELL TO GRAVITY, 500 CC OUTPUT. INITIATED G TUBE FEEDING, CURRENTLY RUNNING AT 35 ML/HR, TOLERATING WELL. ABDOMINAL BINDER IN PLACE. IV ACCESS ON CAROLYNN ML, INTACT AND PATENT. REPOSITIONED EVERY 2 HRS FOR COMFORT. FALL PRECAUTIONS MAINTAINED AT ALL TIMES. RESTRAINTS ASSESSED PER PROTOCOL. WOUND CARE DONE ORDERED. SAFETY MEASURES MAINTAINED. BED IN LOWEST POSITION, BRAKES LOCKED. SIDE RAILS UP X2. CALL LIGHT WITHIN REACH. WILL ENDORSE CONTINUITY OF CARE TO ONCOMING SHIFT.
--- NOTE | 2022-11-30 19:45 | NUR ---
SPECIAL NEEDS LIBRARIAN OPENING NOTE RECEIVED PATIENT IN BED; AWAKE AND NONVERBAL. ON O2 INHALATION @ 1 LPM VIA NASAL CANNULA; TOLERATING WELL. BREATHING EVEN AND NONLABORED. AFEBRILE. NO S/S OF PAIN OR DISCOMFORT. ON TELE MONITORING WITH READING OF ST HR-115 BPM. WITH MIDLINE ON RIGHT UPPER ARM 18g; PATENT, INTACT AND SALINE LOCKED. WITH GTUBE IN PLACE; INTACT RUNNING WITH JEVITY 1.2 REGULATED @ 45 ML/HR; FLUSHES WELL. WITH FLEMING CATHETER IN PLACE DRAINING BY GRAVITY TO YELLOW URINE OUTPUT. SAFETY PRECAUTIONS IMPLEMENTED: HEAD OF BED ELEVATED, CALL LIGHT AND TABLE WITHIN REACH, SIDE RAILS UP X 3, BED IN LOWEST LOCKED POSITION. WILL CONTINUE TO MONITOR THROUGHOUT SHIFT.
[2022-11-30 20:00] VITALS: BP 102/56
[2022-12-01] VITALS: BP 115/59
[2022-12-01 04:00] VITALS: BP 103/56
--- NOTE | 2022-12-01 06:40 | NUR ---
CROZER CLOSING NOTE PATIENT IN BED; AWAKE AND NONVERBAL. STILL ON O2 INHALATION @ 1 LPM VIA NASAL CANNULA; WELL TOLERATED. IN NO ACUTE DISTRESS. NO S/S OF PAIN OR DISCOMFORT. ON TELE MONITORING WITH READING OF ST HR-118 BPM. WITH MIDLINE ON RIGHT UPPER ARM 18g; PATENT, INTACT AND SALINE LOCKED. WITH GTUBE IN PLACE; INTACT RUNNING WITH JEVITY 1.2 REGULATED @ 45 ML/HR; FLUSHES WELL. WITH FLEMING CATHETER IN PLACE DRAINING BY GRAVITY TO YELLOW URINE OUTPUT. SAFETY PRECAUTIONS MAINTAINED: HEAD OF BED ELEVATED, CALL LIGHT AND TABLE WITHIN REACH, SIDE RAILS UP X 3, BED IN LOWEST LOCKED POSITION. ENDORSED TO ONCOMING NURSE FOR SARAI.
--- NOTE | 2022-12-01 07:25 | NUR ---
CHORAL TEACHER OPENING NOTES Received pt awake in bed non verbal and unable to follow command. No signs of pain or discomfort at this time. Pt is currently on 1L NC and tolerating it well. IV access on CAROLYNN ML patent and intact. GT patent and intact with feeding running at prescribed settings. HOB elevated to 30-45 degrees. Siderails up at all times x2. Call light within reach. Will continue to monitor.
[2022-12-01 08:00] VITALS: BP 112/67
[2022-12-01] MEDS: PROSOURCE / PROSTAT (PYXIS) 30 ML UDC GT SCH (08:17)
[2022-12-01] MEDS: THERAHONEY GEL 1.5 OZ TUBE TP SCH (08:17)
[2022-12-01] MEDS ORDERED: PANTOPRAZOLE 40 MG/PACK PACK GT SCH (09:00)
[2022-12-01] MEDS: ENOXAPARIN SODIUM 40 MG/0.4 ML DISP.SYRIN SQ SCH (11:30)
[2022-12-01] MEDS: LEVETIRACETAM (500MG) 500 MG in IV NS 0.9% 100 ML IV SCH (11:35)
--- NOTE | 2022-12-01 12:07 | NUR ---
WOOL BUYER NOTES Pt ordered for D/C back to [facility]. Report given to MIRNA Perez. instrument mechanics supervisor time is 1300. ALEC May made aware.
--- NOTE | 2022-12-01 13:50 | NUR ---
HEDIS REVIEW NURSE NOTES Pt picked up by [employer]. Paperwork and discharge endorsement given to EMT. IV access and external heart monitor taken out. Transferred from bed to [facility] safely.
== END 2022-12-01 13:50 | DRG 853 ==
LOC: ER 09:21 → TELE-TD 13:38 → TELE1 11-20 19:01
PROVIDERS: ATTEND Nurse Practitioner Acute Care
PROC: 05H933Z Insertion of Infusion Device into Right Brachial Vein, Percutaneous Approach (ICD-10-PCS; 2022-11-22)
PROC: 0JBR0ZZ Excision of Left Foot Subcutaneous Tissue and Fascia, Open Approach (ICD-10-PCS; principal; 2022-11-24)
PROC: 0JBQ0ZZ Excision of Right Foot Subcutaneous Tissue and Fascia, Open Approach (ICD-10-PCS; 2022-11-24)
PROC: 0QB10ZZ Excision of Sacrum, Open Approach (ICD-10-PCS; 2022-11-26)
PROC: 0DH63UZ Insertion of Feeding Device into Stomach, Percutaneous Approach (ICD-10-PCS; 2022-11-30)
DX: A41.9 Sepsis, unspecified organism (principal); E43 Unspecified severe protein-calorie malnutrition; G92.8 Other toxic encephalopathy; L89.124 Pressure ulcer of left upper back, stage 4; G93.41 Metabolic encephalopathy; N17.0 Acute kidney failure with tubular necrosis; J69.0 Pneumonitis due to inhalation of food and vomit; I21.A1 Myocardial infarction type 2; L89.623 Pressure ulcer of left heel, stage 3; L89.613 Pressure ulcer of right heel, stage 3; L89.154 Pressure ulcer of sacral region, stage 4; J96.21 Acute and chronic respiratory failure with hypoxia; J15.6 Pneumonia due to other Gram-negative bacteria; M62.82 Rhabdomyolysis; N39.0 Urinary tract infection, site not specified; E87.0 Hyperosmolality and hypernatremia; Z68.1 Body mass index [BMI] 19.9 or less, adult; R64 Cachexia; I69.354 Hemiplegia and hemiparesis following cerebral infarction affecting left non-dominant side; R65.20 Severe sepsis without septic shock; Z20.822 Contact with and (suspected) exposure to COVID-19; K29.70 Gastritis, unspecified, without bleeding; N18.9 Chronic kidney disease, unspecified; I25.10 Atherosclerotic heart disease of native coronary artery without angina pectoris; I13.10 Hypertensive heart and chronic kidney disease without heart failure, with stage 1 through stage 4 chronic kidney disease, or unspecified chronic kidney disease; F09 Unspecified mental disorder due to known physiological condition; I25.2 Old myocardial infarction; Z79.82 Long term (current) use of aspirin; M62.50 Muscle wasting and atrophy, not elsewhere classified, unspecified site; Z74.01 Bed confinement status; M62.40 Contracture of muscle, unspecified site; R32 Unspecified urinary incontinence; R13.10 Dysphagia, unspecified; E78.5 Hyperlipidemia, unspecified; Z86.16 Personal history of COVID-19; Z79.899 Other long term (current) drug therapy; R74.01 Elevation of levels of liver transaminase levels; L89.526 Pressure-induced deep tissue damage of left ankle; E86.0 Dehydration; G40.909 Epilepsy, unspecified, not intractable, without status epilepticus; F03.90 Unspecified dementia, unspecified severity, without behavioral disturbance, psychotic disturbance, mood disturbance, and anxiety; E88.09 Other disorders of plasma-protein metabolism, not elsewhere classified; B96.4 Proteus (mirabilis) (morganii) as the cause of diseases classified elsewhere; E87.6 Hypokalemia; Y95 Nosocomial condition; E86.1 Hypovolemia; Z86.19 Personal history of other infectious and parasitic diseases
CPT/HCPCS: 36410; 36415; 36600; 43246; 71045-TC; 80048-TC; 80053-TC; 80076-TC; 80202-TC; 81001; 82550-TC; 82553; 82803-TC; 82962-TC; 83605-TC; 83735-TC; 84100-TC; 84484-TC; 85025-TC; 85730-TC; 87040-TC; 87081-TC; 87086-TC; 92526; 92611-TC; 93307-TC; A4223; A6403; A9563; C9113; C9803; G0378; J0692; J1650; J1953; J2270; J2370; J2704; J3370; J3475; J3480; J3490; J7030; J7042; J7050; J7060; J7070

== ENCOUNTER 2022-12-02 23:02 | Inpatient (IN) | payer MEDICARE, MEDICAID ==
[~2022-12-02] VITALS: Ht 160 cm; Wt 67.6 kg
[~2022-12-02 23:02] MED LIST: ACET-868 PO; AMIN30LI2 PO; ASCO-340 PO; ASPI-1169 PO; BISA10SU11 RC; CHOL100043 PO; COLL30OI TP; FOLI0.4T6 PO; LEVE500T9 PO; MAGN400O6 PO; METO25TA20 PO; NA P133E RC; NALO4SPR NS; OXYC-128 PO; SENN-261 PO
--- NOTE | 2022-12-02 23:47 | NUR ---
PT W/ F/C SUPERVISOR OF INSTRUCTION, DRAINING TO GRAVITY WITH CLEAR, YELLOW URINE.
--- NOTE | 2022-12-02 23:47 | NUR ---
ISAIAH FROM [facility] C/O G TUBE OUT AT 2200 (W/ TEMPORARY 16FR CATHETER PLACED AT FACILITY ENGINEERING DIRECTOR). PT AWAKE, RESPONSIVE TO VERBAL STIMULI, LARISSA ORIENTATION. PLACED COMFORTABLY IN BED, VITALS CHECKED.
--- NOTE | 2022-12-03 00:15 | NUR ---
16FR GT REPLACED BY CHARGE NURSE
--- NOTE | 2022-12-03 01:12 | NUR ---
XR AT BEDSIDE
[2022-12-03] MEDS ORDERED: DIATR MEGLU/DIATRIZOATE SODIUM 30 ML BOTTLE (GASTROGRAPHIN) ONE (01:18)
[2022-12-03] MEDS ORDERED: IV NS 0.9% 1,000 ML IV ONE (02:00)
--- NOTE | 2022-12-03 02:00 | NUR ---
URINE COLLECTED FROM F/C - CLOUDY, YELLOW.
--- NOTE | 2022-12-03 02:00 | NUR ---
BLOOD CX AND BLOOD WORK COLLECTED, SENT TO LAB
--- NOTE | 2022-12-03 02:05 | NUR ---
20GA TO LH ESTABLISHED
[2022-12-03] MEDS ORDERED: VANCOMYCIN 1 GM VIAL ONE (02:10)
[2022-12-03] MEDS ORDERED: PIPERACILLIN /TAZOBACTAM 3.375 G VIAL IV ONE (02:10)
--- NOTE | 2022-12-03 02:10 | NUR ---
18GA TO LFA ESTABLISHED
--- NOTE | 2022-12-03 02:18 | NUR ---
PT CHANGED AND CLEANED
--- NOTE | 2022-12-03 02:25 | NUR ---
CHEST XR COMPLETED AT BEDSIDE
[2022-12-03] MEDS ORDERED: PIPERACILLIN /TAZOBACTAM 3.375 G in IV D5W 50 ML IV ONE (02:30)
[2022-12-03] MEDS ORDERED: IV NS 0.9% 1,000 ML BAG IV ONE (02:30)
[2022-12-03] MEDS ORDERED: VANCOMYCIN 1 GM in IV D5W 250 ML IV ONE (02:30)
--- NOTE | 2022-12-03 02:30 | NUR ---
XRAY AT BEDSIDE
[2022-12-03 02:51] LABS: BASOPHILS # (AUTO) 0.1 K/uL (0.0-0.2); BASOPHILS % (AUTO) 0.6 % (0.0-2.0); EOSINOPHILS % (AUTO) 0.4 % (0.0-6.0); HEMATOCRIT 23 % (39-51); HEMOGLOBIN 7.2 g/dL (13.5-17.5); LYMPHOCYTES # (AUTO) 1.9 K/uL (0.8-4.8); LYMPHOCYTES % (AUTO) 9.7 % (20.0-44.0); MEAN CORPUSCULAR HGB CONC 31 g/dl (31.0-36.0); MEAN CORPUSCULAR VOLUME 82 fL (80-96); MONOCYTES # (AUTO) 0.7 K/uL (0.1-1.30); MONOCYTES % (AUTO) 3.8 % (2.0-12.0); NEUTROPHILS # (AUTO) 16.4 K/uL (1.8-8.9); NEUTROPHILS % (AUTO) 85.5 % (43.0-81.0); PLATELET COUNT (AUTO) 491 K/uL (150-450); RED BLOOD CELL COUNT(AUTO) 2.79 MIL/uL (4.5-6.0); WHITE BLOOD COUNT (AUTO) 19.2 K/uL (4.3-11.0)
[2022-12-03 03:03] LABS: CALCIUM, SERUM 7.8 mg/dL (8.5-10.1); CARBON DIOXIDE 25 mmol/L (21-32); CHLORIDE 115 mmol/L (98-107); CREATININE 0.8 mg/dL (0.6-1.3); GLUCOSE 72 mg/dL (74-106); POTASSIUM 3.2 mmol/L (3.5-5.1); SODIUM SERUM 147 mmol/L (136-145); UREA NITROGEN, BLOOD 17 mg/dL (7-18)
--- NOTE | 2022-12-03 03:03 | NUR ---
TAKEN TO RADIOLOGY
[2022-12-03 03:07] LABS: BACTERIA,URINE Few /HPF (None Seen); BILIRUBIN,URINE NEGATIVE (NEGATIVE); COLOR,URINE DARK YELLOW (YELLOW); LEUKOCYTE ESTERASE ,URINE 2+ (NEGATIVE); NITRITE, URINE NEGATIVE (NEGATIVE); PH,URINE 5.5 (5.0-8.0); PROTEIN,URINE 2+ mg/dl (NEGATIVE); SQUAMOUS EPITHELIAL CELL,UR Moderate /HPF (None Seen); UGLUCOSE NEGATIVE (NEGATIVE); UROBILINOGEN,URINE 0.2 EU/dL (0.2); WBC,URINE 21-50 /HPF (0-3)
[2022-12-03 03:11] LABS: ALANINE AMINOTRANSFERASE 12 U/L (12-78); ALKALINE PHOSPHATASE 64 U/L (46-116); ASPARTATE AMINOTRANSFERASE 31 U/L (15-37); BILIRUBIN,DIRECT 0.1 mg/dL (0.0-0.2); BILIRUBIN,TOTAL 0.3 mg/dL (0.2-1.0); TOTAL PROTEIN, SERUM 6.6 g/dL (6.4-8.2)
--- NOTE | 2022-12-03 03:18 | NUR ---
RETURNED FROM CT
[2022-12-03 03:24] LABS: ALBUMIN 1.3 g/dL (3.4-5.0)
[2022-12-03] MEDS ORDERED: ACETAMINOPHEN 650 MG/SUPP.RECT RC ONE ×2 (04:20→04:30)
[2022-12-03] MEDS ORDERED: ONDANSETRON HCL/PF 4 MG/2 ML VIAL IVP PRN (04:30)
[2022-12-03] MEDS ORDERED: MORPHINE SULFATE INJ 2 MG/ML DISP.SYRIN IV PRN (04:30)
[2022-12-03] MEDS ORDERED: Z GUARD REMEDY 4 OZ OINT TP PRN (04:30)
--- NOTE | 2022-12-03 06:00 | NUR ---
TOMBSTONE ERECTOR HELPER NOTE: DR. HANCOKC WITH ORDER FOR NASO GASTRIC TUBE WITH 16F. 57CM LENGTH. WITH ORDER FOR STAT XRAY FOR VERIFICATION FOR PLACEMENT. PENDING RESULT AT THIS TIME.
--- NOTE | 2022-12-03 07:30 | NUR ---
REPORT GIVEN TO MIRNA MARTINEZ FOR CONTINUITY OF CARE
--- NOTE | 2022-12-03 07:40 | NUR ---
Not able to assess patient mental status, patient able to follow simple commands and nods to his name. Patient in bed with no signs of distress or discomfort. All safety precautions taken, will continue to monitor throughout shift.
--- NOTE | 2022-12-03 07:53 | NUR ---
Report givent to Rocio BRADLEY., patient cleared to transfer to room #118
--- NOTE | 2022-12-03 08:00 | NUR ---
PLATE SENSITIZER OPENING NOTE: RECEIVED PT ER VIA [employer]. ACCOMPANIED BY FOX Herrera
--- NOTE | 2022-12-03 08:05 | NUR ---
STARCH DUMPER ADMISSION NOTE RECEIVED PT FROM ER VIA MARY ASSISTED BY 1RN AND 1EMT. PT IS AAOX2 WITH PERIODS OF CONFUSION. ABLE TO DENY PAIN OR DISCOMFORT. RECEIVED ON 2LPM 02SAT 96%. NO SOB, NO DYSPNEA. NO S/S OF DISTRESS NOTED. IV ACCESS ON L HAND 20G AND LFA 22G. FLUSHED. BOTH PATENT AND INTACT. NO S/S OF INFILTRATION NOTED.BODY CHECKED DONE. NOTED WITH UPPER ABD WOUND (OLD GT SITE), SACRAL WOUND, UPPER BACK AND R FOOT. PHOTOS TAKEN AND KEPT IN CHART. WOUND CARE CONSULT REQUESTED.VITAL SIGNS TAKEN B/P 95/65, P 108, R 20, TEMP 97.6. SAFETY PRECAUTION IN PLACED. BED LOW AND LOCK POSITION. S/R X2. CALL LIGHT WITHIN REACH. WILL CONT TO MONITOR. Addendum: 12/03/22 at 1420 by LOUIS HICKEY RN EXTERNAL TELE MONITOR PLACED. F/C PATENT AND INTACT FLOWING TO YELLOW COLORED URINE. CLEAR AND YELLOW. NO FOUL ODOR NOTED.
[2022-12-03] MEDS: CEFEPIME 2 GM in IV D5W 100 ML IV SCH ×2 (09:36→20:51)
[2022-12-03] MEDS: IV D5/0.45 NACL 1,000 ML IV PRN (09:36)
[2022-12-03] MEDS: PANTOPRAZOLE 40 MG VIAL IV SCH (09:37)
--- NOTE | 2022-12-03 10:45 | NUR ---
BEN BOSS DNP AT BEDSIDE.
[2022-12-03] MEDS: POTASSIUM CL. PREMIX PERIPHER. 50 ML IV SCH ×4 (11:27→14:48)
--- NOTE | 2022-12-03 13:00 | NUR ---
DIRECTOR FURNITURE NOTE: GIL AT BEDSIDE
[2022-12-03] MEDS: DAKINS QUARTER STRENGTH (0.125%) 480 ML BOTTLE TOP SCH (13:28)
[2022-12-03] MEDS ORDERED: ACETAMINOPHEN 650 MG/SUPP.RECT RC PRN (16:00)
--- NOTE | 2022-12-03 16:00 | NUR ---
INTERNAL CONTROL CONSULTANT NOTE: NOTED V/S TEMP 99.9, HR 120, RESP 20. BP 117/73. NOTIFIED KARYN DNP WITH NEW ORDER TYLENOL 650MG SUPP Q6H.
--- NOTE | 2022-12-03 16:25 | NUR ---
DIETARY ASSISTANT NOTE: SAMINA JUNIOR LINUX ADMINISTRATOR AT BEDSIDE.
--- NOTE | 2022-12-03 17:02 | NUR ---
INSPECTOR OPEN DIE NOTE: RECHECKED V/S AFTER GIVING PRN TYLENOL SUPP AND COOLING MEAUSURE. V/S ORAL TEMP 98.4,HR 107. 114/70 02SAT 94% ROOM AIR
--- NOTE | 2022-12-03 17:12 | NUR ---
FOOD MANAGER NOTE: RECEIVED CALL FROM LAB. FOR URINE SAMPLE. URINE COLLECTED FROM UPPER F/C TUBING AND SENT TO LAB.
--- NOTE | 2022-12-03 17:21 | NUR ---
dr. kale de la fuente called and gave order to insert ngt and repeat ct abdomen pelvis with oral contrast to r/o pneumoperitoneum,primary rn made aware.
--- NOTE | 2022-12-03 18:12 | NUR ---
NEUROSURGICAL NURSE NOTE: OBTAINED TELEPHONE CONSENT FROM TUNDE NEHEMIAH [phone] FOR SERIAL DEBRIDEMENT OF THE SACRUM AND COMPUTED TOMOGRAPHY ABDOMEN AND PELVIS WITH ORAL CONTRAST. WITNESSED BY LUC HERRERA RN. CONSENT PLACED IN CHART,
--- NOTE | 2022-12-03 18:34 | NUR ---
TELE CLOSING NOTE: PT A/OX2 WITH PERIODS OF CONFUSION. ABLE TO DENY PAIN OR DISCOMFORT. NO RESP DISTRESS NOTED. NO SOB NOTED. ON ROOM AIR 02SAT 95. NGT AWAITING FOR XRAY VERIFICATION. HOB KEPT ELEVATED. NO ASPIRATION NOTED. SKIN WARM AND DRY TO TOUCH. PT WITH LFA 22G PATENT AND INTACT. PT ON D5 1/2NS AT 75ML/HR. TOLERATING. TURNED AND REPOSITIONED FOR COMFORT AND GOOD CIRCULATION. WOUND TX RENDERED TO SACRUM, L SCAPULA, R FOOT, UPPER MID ABD (OLD GT SITE). HOB KEPT ELEVATED. BED LOW AND LOCKED POSITION. CALL LIGHT WITHIN REACH WITH VISUAL CHECK. TO ENSURE SAFETY AND CONCERN. ENDORSE TO NEXT SHIFT FOR CONTINUATION OF CARE.
--- NOTE | 2022-12-03 19:00 | NUR ---
RN NOTE RECEIVED PT IN BED, ALERT, AWAKE, ORIENTED TO SELF ONLY, VERBALLY RESPONSIVE. AFEBRLE. PT ON 2L VIA NC, WELL TOLERATED, NO SOB, NO ACUTE RESPIRATORY DISTRESS NOTED. NOTED WITH NGT ON L NARE, CLAMPED, AWAITING FOR XRAY RESULT FOR PLACEMENT CONFIRMATION. PIV ON LFA #22G INFUSING D5 1/2 NS AT 75ML/HR, IV SITE DRY, CLEAN, NO S/SX OF INFX/INFILTRATION. FLEMING CATH IN PLACED, PATENT, DRAINING CLEAR DARK YELLOW URINE. SAFETY PRECAUTION IMPLEMENTED. HOB ELEVATED. WILL CONT POC
--- NOTE | 2022-12-03 20:30 | NUR ---
RN NOTE NOTED PT PULLED OUT L NARE NGT, RISKS AND BENEFITS EXPLAINED, PT UNABLE TO FOLLOW SAFETY INSTRUCTIONS D/T MENTAL STATUS. NOTIFIED REFERENCE INVESTIGATOR EDNA GAGE WITH ORDER TO USE BILATERAL SOFT WRIST RESTRAINTS. REINSERTED NGT ON L NARE. STAT CXR ORDER IN PLACED TO CONFIRM PLACEMENT.
[2022-12-03] MEDS ORDERED: DIATR MEGLU/DIATRIZOATE SODIUM 120 ML BOTTLE (GASTROGRAPHIN) ONE (21:33)
[2022-12-03] MEDS ORDERED: AMIODARONE 150 MG/3 ML VIAL IV ONE (23:13)
--- NOTE | 2022-12-03 23:40 | NUR ---
[address] on ACLS protocol. Patient responsive to verbal commands.
--- NOTE | 2022-12-03 23:53 | NUR ---
[address] patient in stable condition.
--- NOTE | 2022-12-04 00:54 | NUR ---
[address] abdomen result relayed to Dr. Small with no order made.
[2022-12-04] MEDS: IV D5/0.45 NACL 1,000 ML IV PRN ×2 (01:53→18:34)
[2022-12-04 04:00] VITALS: BP 132/67
[2022-12-04 06:50] LABS: BASOPHILS # (AUTO) 0.1 K/uL (0.0-0.2); BASOPHILS % (AUTO) 0.9 % (0.0-2.0); EOSINOPHILS % (AUTO) 1.6 % (0.0-6.0); HEMATOCRIT 23 % (39-51); HEMOGLOBIN 7.1 g/dL (13.5-17.5); LYMPHOCYTES # (AUTO) 1.7 K/uL (0.8-4.8); MEAN CORPUSCULAR HGB CONC 31 g/dl (31.0-36.0); MEAN CORPUSCULAR VOLUME 83 fL (80-96); MONOCYTES % (AUTO) 6.2 % (2.0-12.0); NEUTROPHILS # (AUTO) 12.6 K/uL (1.8-8.9); NEUTROPHILS % (AUTO) 80.3 % (43.0-81.0); PLATELET COUNT (AUTO) 496 K/uL (150-450); RED BLOOD CELL COUNT(AUTO) 2.79 MIL/uL (4.5-6.0); WHITE BLOOD COUNT (AUTO) 15.7 K/uL (4.3-11.0)
--- NOTE | 2022-12-04 07:13 | NUR ---
RN NOTE PT REMAINS IN STABLE CONDITION. KELL SIGNIFICANT CHANGES NOTED. AFEBRILE. ALL DUE MEDS GIVEN ORDERED. D51/2NS INFUSING AT 75ML/HR ON LFA. L NARE NGT IN PLACED, SECURED, AND CLAMPED. FC IN PLACED, PATENT, AND SECURED. WILL ENDORSE TO AM SHIFT FRO SARAI
[2022-12-04 07:26] LABS: CALCIUM, SERUM 8.9 mg/dL (8.5-10.1); CARBON DIOXIDE 27 mmol/L (21-32); CHLORIDE 106 mmol/L (98-107); CREATININE 0.8 mg/dL (0.6-1.3); GLUCOSE 92 mg/dL (74-106); MAGNESIUM 1.7 mg/dL (1.8-2.4); PHOSPHORUS 2.7 mg/dL (2.5-4.9); POTASSIUM 3.5 mmol/L (3.5-5.1); SODIUM SERUM 139 mmol/L (136-145); UREA NITROGEN, BLOOD 16 mg/dL (7-18)
--- NOTE | 2022-12-04 07:30 | NUR ---
VOCAL ARTIST OPENING NOTE (KAROL DAYSHIFT) Patient received sleeping, easily aroused, oriented to person, in no distress, calm. VS are stable. Breathing comfortably. Pt has a peripheral IV to left forearm, intact, clean, dry, patient infusing D51/2 NS @ 75mLs/hr. No c/o nor signs of pain. Safety measures in place: bed in lowest position; bed alarm on; bilateral soft wrist restraints on to prevent pulling out tubes; bed brakes on; and frequet checking by staff. Pt has NG tube secured to nose for tube feedings when ordered. Will continue to monitor and care for patient per MD POC.
[2022-12-04 08:00] VITALS: BP 120/62
[2022-12-04] MEDS: CEFEPIME 2 GM in IV D5W 100 ML IV SCH ×2 (10:14→21:13)
[2022-12-04] MEDS: PANTOPRAZOLE 40 MG VIAL IV SCH (10:15)
[2022-12-04] MEDS: DAKINS QUARTER STRENGTH (0.125%) 480 ML BOTTLE TOP SCH (10:15)
--- NOTE | 2022-12-04 10:33 | NUR ---
WOUND CARE CONSULT: PT FOLLOWED BY SURGICAL TEAM FOR WOUNDS. DEFER TO SURGICAL TEAM CURRENTLY ON CASE FOR WOUND TREATMENT PLAN. DISCUSSED SKIN PROTECTION WITH NURSING STAFF. MD IN AGREEMENT WITH PLAN OF CARE.
[2022-12-04] MEDS: Magnesium 1GM/D5W 100ML PREMIX 100 ML IV SCH ×2 (11:22→12:46)
[2022-12-04 12:00] VITALS: BP 117/71
[2022-12-04] MEDS ORDERED: DIATR MEGLU/DIATRIZOATE SODIUM 30 ML BOTTLE (GASTROGRAPHIN) ONE (13:38)
[2022-12-04 16:00] VITALS: BP 110/63
--- NOTE | 2022-12-04 19:20 | NUR ---
TELE CLOSING NOTE: PT A/O X 2 WITH PERIODS OF CONFUSION. ABLE TO DENY PAIN OR DISCOMFORT. NO RESP DISTRESS NOTED. NO SOB NOTED. ON ROOM AIR, 02 SAT 95% to on oxygen @ 1 LPM via NC. NGT CLAMPED. HOB KEPT ELEVATED. NO ASPIRATION NOTED. SKIN WARM AND DRY TO TOUCH. PT WITH LFA 22G PATENT AND INTACT. PT ON D5 1/2NS AT 75ML/HR. TOLERATING. TURNED AND REPOSITIONED FOR COMFORT AND GOOD CIRCULATION. WOUND TX RENDERED TO SACRUM, L SCAPULA, R FOOT, UPPER MID ABD (OLD GT SITE). HOB KEPT ELEVATED. BED LOW AND LOCKED POSITION. CALL LIGHT WITHIN REACH WITH VISUAL CHECK. TO ENSURE SAFETY AND CONCERN. BILATERAL WRIST RESTRAINTS TO PREVENT PULLING OUT OF TUBES/IV CATHETER. ENDORSED TO CONTENT PRODUCER NURSE, HUMZA, FOR CONTINUATION OF CARE.
--- NOTE | 2022-12-04 19:31 | NUR ---
RN OPENING NOTES; RECEIVED PT IN BED WITH EYES CLOSED BUT EASY TO AROUSED AOX1 WITH CONFUSION,ON 1L O2 VIA NC INNA WELL SATING 98%,NO SIGN SOB/DISTRESS NOTED,NO SIGN OF PAIN/DISCOMFORT AT THIS TIME,IV ACCESS ON LFA WITH D5 I/2NS 75ML/HR INFUSING WELL,BISI SOFT RESTRAIN IN PLACE,NO REDNESS,SWOLLEN,GOOD CIRCULATION ,SAFETY MEASURE IN PLACE,WILL CONTINUE TO MONITOR.
[2022-12-04 20:00] VITALS: BP 102/65
[2022-12-05] VITALS: BP 108/68
[2022-12-05 04:00] VITALS: BP 133/80
[2022-12-05] MEDS: IV D5/0.45 NACL 1,000 ML IV PRN ×2 (05:53→18:31)
--- NOTE | 2022-12-05 06:19 | NUR ---
RN CLOSING NOTES; PATIENT IN BED SLEEPING BUT EASY TO AROUSED, AOX1 WITH CONFUSION,ON 1L O2 VIA NC INNA WELL SAT 97.6%,NO SIGN SOB/DISTRESS NOTED,NO SIGN OF PAIN/DISCOMFORT DURING SHIFT,DUE MEDS GIVEN ORDER,ALL NEEDS ATTENDED,IV ACCESS ON LFA WITH D5 I/2NS 75ML/HR INFUSING WELL,BISI SOFT RESTRAIN IN PLACE,NO REDNESS,SWOLLEN,GOOD CIRCULATION,RELEASED PER PROTOCOL,FC IN PLACE DRAINING GREGORIO URINE WITH OUTPUT,SAFETY MEASURE IN PLACE,CALL LIGHT WITHIN REACH,WILL ENDORSED TO NEXT SHIFT.
[2022-12-05 06:30] LABS: BASOPHILS # (AUTO) 0.3 K/uL (0.0-0.2); EOSINOPHILS % (AUTO) 1.7 % (0.0-6.0); HEMATOCRIT 23 % (39-51); HEMOGLOBIN 7.3 g/dL (13.5-17.5); LYMPHOCYTES # (AUTO) 1.1 K/uL (0.8-4.8); LYMPHOCYTES % (AUTO) 10.1 % (20.0-44.0); MEAN CORPUSCULAR HGB CONC 32 g/dl (31.0-36.0); MEAN CORPUSCULAR VOLUME 82 fL (80-96); MONOCYTES # (AUTO) 0.7 K/uL (0.1-1.30); MONOCYTES % (AUTO) 6.4 % (2.0-12.0); NEUTROPHILS # (AUTO) 8.9 K/uL (1.8-8.9); NEUTROPHILS % (AUTO) 78.8 % (43.0-81.0); PLATELET COUNT (AUTO) 477 K/uL (150-450); RED BLOOD CELL COUNT(AUTO) 2.82 MIL/uL (4.5-6.0); WHITE BLOOD COUNT (AUTO) 11.3 K/uL (4.3-11.0)
[2022-12-05 06:45] LABS: CALCIUM, SERUM 8.8 mg/dL (8.5-10.1); CARBON DIOXIDE 27 mmol/L (21-32); CHLORIDE 105 mmol/L (98-107); CREATININE 0.9 mg/dL (0.6-1.3); GLUCOSE 110 mg/dL (74-106); MAGNESIUM 2.1 mg/dL (1.8-2.4); PHOSPHORUS 2.9 mg/dL (2.5-4.9); POTASSIUM 3.5 mmol/L (3.5-5.1); SODIUM SERUM 138 mmol/L (136-145); UREA NITROGEN, BLOOD 12 mg/dL (7-18)
[2022-12-05 08:00] VITALS: BP 111/75
--- NOTE | 2022-12-05 08:15 | NUR ---
RN NOTE NG TUBE REMOVED AT THIS TIME.
[2022-12-05] MEDS: CEFEPIME 2 GM in IV D5W 100 ML IV SCH ×2 (08:54→21:27)
[2022-12-05] MEDS: DAKINS QUARTER STRENGTH (0.125%) 480 ML BOTTLE TOP SCH (08:55)
[2022-12-05] MEDS: PANTOPRAZOLE 40 MG VIAL IV SCH (08:56)
[2022-12-05 12:00] VITALS: BP 112/67
--- NOTE | 2022-12-05 13:10 | NUR ---
RN NOTE SACRAL DEBRIDEMENT PERFORMED BY Bozena SHAH. PATIENT DENIES ANY PAIN AT THIS TIME.
[2022-12-05 16:00] VITALS: BP 108/65
--- NOTE | 2022-12-05 19:18 | NUR ---
TUBE BUILDER CLOSING NOTES; PATIENT IN BED SLEEPING BUT EASY TO AROUSED, AOX1 WITH CONFUSION, ON 1L O2 VIA NC INNA WELL SAT 98%,NO SIGN SOB/DISTRESS NOTED,NO SIGN OF PAIN/DISCOMFORT DURING SHIFT,DUE MEDS GIVEN ORDER, ALL NEEDS ATTENDED, IV ACCESS ON LFA WITH D5 I/2NS 75ML/HR INFUSING WELL, BISI SOFT RESTRAIN IN PLACE, NO REDNESS, SWOLLEN,GOOD CIRCULATION,RELEASED PER PROTOCOL, HOB ELEVATED. FC IN PLACE DRAINING GREGORIO URINE WITH OUTPUT, SAFETY MEASURE IN PLACE, CALL LIGHT WITHIN REACH,WILL ENDORSED TO NEXT SHIFT.
--- NOTE | 2022-12-05 19:25 | NUR ---
RN NOTE RECEIVED PT IN BED, AWAKE, ORIENTED TO SELF ONLY. DENIES PAIN OR DISCOMFORT AT THIS TIME. ON 2L O2 VIA NC, WELL TOLERATED, NO SOB, NO ACUTE RESP DISTRESS NOTED. AFEBRILE. PIV ACCESS ON LFA, CLEAN, DRY AND INTACT, CURRENTLY INFUSING D51/2 NS AT 75ML/HR, WELL TOLERATED. PT ON NPO STATUS ORDERED. FLEMING CATH IN PLACED, PATENT, DRAINING CLEAR DARK YELLOW URINE BY GRAVITY. HOB ELEVATED. SAFETY PRECAUTIONS IMPLEMENTED. WILL CONTINUE POC.
[2022-12-05 20:00] VITALS: BP 126/73
[2022-12-06] VITALS: BP 131/81
[2022-12-06 04:00] VITALS: BP 137/80
--- NOTE | 2022-12-06 06:54 | NUR ---
RN NOTE PT REMAINS IN STABLE CONDITION. NO SIGNIFICANT CHANGES NOTED. ON 2L O2 VIA NC, WELL TOLERATED, O2 SAT- 95%, NO RESP DISTRESS NOTED. PT ATTACHED TO EXTERNAL CLOTH GRADER CURRENT READING ST HR104. NO S/SX OF DISCOMFORT AT THIS TIME. PIV ON LFA INFUSING D51/2NS AT 75ML/HR. FLEMING CATH IN PLACED, PATENT, URINE OUTPUT 500ML THROUGHOUT THE SHIFT. PT NOTED WITH X1BM. PT REMAINS ON NPO STATUS. ALL NEEDS ATTENDED. KEPT PT CLEAN, DRY, AND COMFORTABLE. HOB ELEVATED. WILL ENDORSE TO AM SHIFT NURSE FOR SARAI.
[2022-12-06] MEDS: PANTOPRAZOLE 40 MG VIAL IV SCH (09:13)
[2022-12-06] MEDS: DAKINS QUARTER STRENGTH (0.125%) 480 ML BOTTLE TOP SCH (09:13)
[2022-12-06] MEDS: CEFEPIME 2 GM in IV D5W 100 ML IV SCH ×2 (09:13→20:17)
[2022-12-06 09:36] LABS: BASOPHILS # (AUTO) 0.1 K/uL (0.0-0.2); BASOPHILS % (AUTO) 1.4 % (0.0-2.0); EOSINOPHILS % (AUTO) 2.1 % (0.0-6.0); HEMATOCRIT 22 % (39-51); LYMPHOCYTES # (AUTO) 1.6 K/uL (0.8-4.8); LYMPHOCYTES % (AUTO) 15.6 % (20.0-44.0); MEAN CORPUSCULAR HGB CONC 33 g/dl (31.0-36.0); MEAN CORPUSCULAR VOLUME 80 fL (80-96); MONOCYTES # (AUTO) 0.6 K/uL (0.1-1.30); NEUTROPHILS # (AUTO) 7.8 K/uL (1.8-8.9); NEUTROPHILS % (AUTO) 74.9 % (43.0-81.0); PLATELET COUNT (AUTO) 563 K/uL (150-450); RED BLOOD CELL COUNT(AUTO) 2.69 MIL/uL (4.5-6.0); WHITE BLOOD COUNT (AUTO) 10.4 K/uL (4.3-11.0)
[2022-12-06 09:55] LABS: CALCIUM, SERUM 8.8 mg/dL (8.5-10.1); CARBON DIOXIDE 27 mmol/L (21-32); CHLORIDE 102 mmol/L (98-107); CREATININE 0.7 mg/dL (0.6-1.3); GLUCOSE 77 mg/dL (74-106); MAGNESIUM 1.8 mg/dL (1.8-2.4); PHOSPHORUS 3.3 mg/dL (2.5-4.9); POTASSIUM 3.4 mmol/L (3.5-5.1); SODIUM SERUM 135 mmol/L (136-145); UREA NITROGEN, BLOOD 11 mg/dL (7-18)
[2022-12-06] MEDS: IV D5/0.45 NACL 1,000 ML IV PRN (09:57)
--- NOTE | 2022-12-06 10:00 | NUR ---
Patient hemoglobin is 7.0 HODAN Ahmadi made aware no new order.
--- NOTE | 2022-12-06 11:00 | NUR ---
Consent for surgical procedure ( PEG TUBE placement), blood transfusion, and anesthesia received from patient's sister Yadira verified and signed with other RN.
[2022-12-06 11:26] VITALS: BP 153/78
--- NOTE | 2022-12-06 14:00 | NUR ---
Patient off unit to OR.
[2022-12-06] MEDS ORDERED: ANESTHESIA TRAY IN PYXIS 1 EA TRAY MC ONE (14:39)
[2022-12-06] MEDS ORDERED: JEVITY 1.2 CAL 1,000 ML BOTTLE GT PRN (15:00)
--- NOTE | 2022-12-06 15:00 | NUR ---
Patient return from OR status post PEG Tube placement. No active bleeding noted to site. Okay order received to start jevity tube feeding at 40ml/hr. Order carried out.
[2022-12-06 18:22] VITALS: BP 124/74
--- NOTE | 2022-12-06 19:27 | NUR ---
Patient left in care of MIRNA Beltran.
--- NOTE | 2022-12-06 19:30 | NUR ---
RN NOTE RECEIVED PT IN BED, AWAKE, ORIENTED TO SELF ONLY. DENIES PAIN OR DISCOMFORT AT THIS TIME. ON ROOM AIR, WELL TOLERATED, NO SOB, NO ACUTE RESP DISTRESS NOTED. AFEBRILE. PIV ACCESS ON LFA, CLEAN, DRY AND INTACT, ON SL, FLUSHES WELL. PEG TUBE IN PLACED, PATENT, CURRENTLY INFUSING JEVITY 1.2 AT 40ML/HR, WELL INNA, 0 RESIDUAL. HOB ELEVATED. FLEMING CATH IN PLACED, PATENT, DRAINING DARK YELLOW URINE BY GRAVITY. HOB ELEVATED. SAFETY PRECAUTIONS IMPLEMENTED. WILL CONTINUE POC.
[2022-12-06 20:00] VITALS: BP 128/72
[2022-12-07] VITALS: BP 126/68
[2022-12-07 04:00] VITALS: BP 122/71
[2022-12-07 06:48] LABS: BASOPHILS # (AUTO) 0.1 K/uL (0.0-0.2); BASOPHILS % (AUTO) 1.2 % (0.0-2.0); HEMATOCRIT 23 % (39-51); HEMOGLOBIN 7.1 g/dL (13.5-17.5); LYMPHOCYTES # (AUTO) 2.9 K/uL (0.8-4.8); LYMPHOCYTES % (AUTO) 24.7 % (20.0-44.0); MEAN CORPUSCULAR HGB CONC 30 g/dl (31.0-36.0); MEAN CORPUSCULAR VOLUME 83 fL (80-96); MONOCYTES # (AUTO) 0.9 K/uL (0.1-1.30); MONOCYTES % (AUTO) 7.3 % (2.0-12.0); NEUTROPHILS # (AUTO) 7.5 K/uL (1.8-8.9); NEUTROPHILS % (AUTO) 63.8 % (43.0-81.0); PLATELET COUNT (AUTO) 656 K/uL (150-450); WHITE BLOOD COUNT (AUTO) 11.7 K/uL (4.3-11.0)
--- NOTE | 2022-12-07 07:15 | NUR ---
RN NOTE PT REMAINS IN STABLE CONDITION. NO SIGNIFICANT CHANGES NOTED. ON room air, O2 SAT- 97%, NO RESP DISTRESS NOTED. PT ATTACHED TO EXTERNAL TITLE INSURANCE EXAMINER CURRENT READING ST. NO S/SX OF DISCOMFORT AT THIS TIME. GTF RUNNING AT 40ML/HR, WELL INNA, 0 RESIDUAL. FLEMING CATH IN PLACED, PATENT, URINE OUTPUT 600ML THROUGHOUT THE SHIFT. PT NOTED WITH X1BM. ALL NEEDS ATTENDED. KEPT PT CLEAN, DRY, AND COMFORTABLE. HOB ELEVATED. HAND OFF REPORT GIVEN TO JOSE J BRADLEY.
--- NOTE | 2022-12-07 07:39 | NUR ---
FARE COLLECTOR NOTE PATIENT IN BED , ON RA NO SOB NOTED AT THIS TIME, ON TELE MONITOR ST 119 AT THIS TIME, WITH FLEMING CATH TO GRAVITY WITH G TUBE FEEDING ORDERED KEEP ,HOB ELEVATED AT ALL TIME, , RT FA HL INTACT BED IN LOWEST AND LOCKED POSITION WILL CONT TO MONITOR CLOSELY
[2022-12-07 08:00] VITALS: BP 118/82
[2022-12-07 08:00] LABS: CALCIUM, SERUM 8.9 mg/dL (8.5-10.1); CREATININE 0.8 mg/dL (0.6-1.3); MAGNESIUM 1.8 mg/dL (1.8-2.4); PHOSPHORUS 2.7 mg/dL (2.5-4.9); POTASSIUM 3.3 mmol/L (3.5-5.1)
[2022-12-07] MEDS: CEFEPIME 2 GM in IV D5W 100 ML IV SCH ×2 (08:36→21:11)
[2022-12-07] MEDS: PANTOPRAZOLE 40 MG VIAL IV SCH (08:36)
[2022-12-07] MEDS: DAKINS QUARTER STRENGTH (0.125%) 480 ML BOTTLE TOP SCH (08:37)
[2022-12-07] MEDS ORDERED: POTASSIUM CHLORIDE 20 MEQ POWDER PACKET GT SCH (10:00)
--- NOTE | 2022-12-07 10:16 | NUR ---
telecommunications manager note per dietary ok to change g tube feeding at 65 ml per hour. will f\i
--- NOTE | 2022-12-07 11:16 | NUR ---
tele grout sewer line repairer note Daiana prieto nonprofit manager at bedside notified that hr st [id number] no new order given at this time
[2022-12-07 12:00] VITALS: BP 120/70
[2022-12-07] MEDS ORDERED: PROSOURCE / PROSTAT (PYXIS) 30 ML UDC GT SCH (12:30)
[2022-12-07] MEDS: CHOLECALCIFEROL 1,000 UNIT TABLET (VIT D3) PO SCH (12:59)
[2022-12-07] MEDS: FOLIC ACID 1 MG TABLET PO SCH (12:59)
[2022-12-07] MEDS: METOPROLOL TARTRATE 25 MG TABLET PO SCH ×2 (12:59→16:25)
[2022-12-07] MEDS: LEVETIRACETAM SOL (5 ML) 100 MG/ML UDC PO SCH ×2 (13:00→21:12)
--- NOTE | 2022-12-07 15:00 | NUR ---
telephone order dispatcher note rounds made , all needs attended, made a bm, keep clean dry will monitor
[2022-12-07 16:00] VITALS: BP 125/70
[2022-12-07] MEDS: JEVITY 1.2 CAL 1,000 ML BOTTLE GT PRN (17:41)
--- NOTE | 2022-12-07 18:38 | NUR ---
RISK PROFESSIONAL NOTE PATIENT IN BED ALERT WITH CONFUSION , ON TELE MONITOR SR-ST HR 95-119 WITH FLEMING CATH TO GRAVITY WITH YELLOW COLOR URINE WITH G TUBE FEEDING ORDERED TOLERATED WELL ,NO RESIDUAL NOTED AT THIS TIME, KEEP HOB ELEVATED AT ALL TIME, RT FA HL INTACT AND FLUSHED WELL , BED IN LOWEST AND LOCKED POSITION , CALL LIGHT WITHIN REACH STILL SOFT RESTRAIN, UNABLE TO REMOVE ,STILL AT RISK TO REMOVE ALL LINES, WILL CONT TO MONITOR
--- NOTE | 2022-12-07 19:49 | NUR ---
UNIX ADMINISTRATOR OPENING NOTES: RECEIVED PATIENT IN BED, ALERT/ORIENTED X1-2 WITH CONFUSION AND RESPONSIVE TO PAINFUL STIMULI. IV ACCESS ON RFA#22G INTACT AND PATENT. NO S/S OF INFILTRATIONS. G TUBE FEEDING WELL TOLERATED. RUNNING JEVITY 1.2 AT 65CC/HR. NO FACIAL GRIMACING NOTED. NO ACUTE DISTRESS. FLEMING CATH IN PLACE. DRAINING BY GRAVITY. RUNNING YELLOW COLOR URINE. KEEP HOB ELEVATED. BILATERAL SOFT RESTRAINTS ON. ALL SAFETY MEASURES IN PLACE. BED IN LOWEST POSITION AND LOCKED. SIDE RAILS UP X3, PLACE CALL LIGHT WITHIN REACH. WILL CONTINUE TO MONITOR
[2022-12-07 20:00] VITALS: BP 113/67
--- NOTE | 2022-12-07 23:48 | NUR ---
GAVE REPORT TO ADI BRADLEY.
[2022-12-08] VITALS: BP 115/58
--- NOTE | 2022-12-08 03:25 | NUR ---
RN NOTE AM CARE GIVEN. REMAINING SAME ROOM AIR TOLERATED WELL.SAT 98%, NO ACUTE DISTRESS NOTED. CARE TRANSITION MGR SHOWING NSR. HOBELEVATED. TURN AND REPOSITION Q2H. WILL CONTINUE TO MONITOR VITALS.
[2022-12-08 04:00] VITALS: BP 120/60
--- NOTE | 2022-12-08 07:00 | NUR ---
RN OPENING NOTE PATIENT IN BED, AWAKE, A/O X 1-2. ON RA O2 SAT- 97%. IV ACCESS LEFT FA, INTACT, FLUSHES WELL. G-TUBE IN PLACE, JEVITY RUNNING AT 65 ML/HR, WELL INNA, 0 RESIDUAL. FLEMING CATH IN PLACED. SAFETY MEASURES IMPLEMENTED, BED LOCKED AND IN LOWEST POSITION, HOB ELEVATED, CALL LIGHT WITHIN REACH. WILL CONTINUE TO MONITOR.
[2022-12-08 08:00] VITALS: BP 134/71
[2022-12-08] MEDS: PROSOURCE / PROSTAT (PYXIS) 30 ML UDC GT SCH (08:12)
[2022-12-08] MEDS: DAKINS QUARTER STRENGTH (0.125%) 480 ML BOTTLE TOP SCH (08:13)
[2022-12-08] MEDS: LEVETIRACETAM SOL (5 ML) 100 MG/ML UDC PO SCH ×2 (08:59→21:24)
[2022-12-08] MEDS: ASPIRIN 81 MG TAB.CHEW PO SCH (08:59)
[2022-12-08] MEDS: PANTOPRAZOLE 40 MG/PACK PACK NG SCH (08:59)
[2022-12-08] MEDS: CEFEPIME 2 GM in IV D5W 100 ML IV SCH ×2 (08:59→21:24)
[2022-12-08] MEDS: FOLIC ACID 1 MG TABLET PO SCH (09:00)
[2022-12-08] MEDS: CHOLECALCIFEROL 1,000 UNIT TABLET (VIT D3) PO SCH (09:00)
[2022-12-08] MEDS: ASCORBIC ACID 500 MG TABLET PO SCH (09:00)
[2022-12-08] MEDS: METOPROLOL TARTRATE 25 MG TABLET PO SCH ×2 (09:00→16:56)
[2022-12-08 09:15] LABS: BASOPHILS # (AUTO) 0.1 K/uL (0.0-0.2); BASOPHILS % (AUTO) 1.2 % (0.0-2.0); EOSINOPHILS % (AUTO) 3.2 % (0.0-6.0); HEMATOCRIT 25 % (39-51); HEMOGLOBIN 7.6 g/dL (13.5-17.5); LYMPHOCYTES # (AUTO) 1.9 K/uL (0.8-4.8); LYMPHOCYTES % (AUTO) 16.5 % (20.0-44.0); MEAN CORPUSCULAR HGB CONC 31 g/dl (31.0-36.0); MEAN CORPUSCULAR VOLUME 82 fL (80-96); MONOCYTES # (AUTO) 0.9 K/uL (0.1-1.30); NEUTROPHILS # (AUTO) 8.3 K/uL (1.8-8.9); NEUTROPHILS % (AUTO) 71.1 % (43.0-81.0); PLATELET COUNT (AUTO) 516 K/uL (150-450); RED BLOOD CELL COUNT(AUTO) 2.97 MIL/uL (4.5-6.0); WHITE BLOOD COUNT (AUTO) 11.6 K/uL (4.3-11.0)
[2022-12-08 09:36] LABS: CALCIUM, SERUM 8.9 mg/dL (8.5-10.1); CARBON DIOXIDE 27 mmol/L (21-32); CHLORIDE 103 mmol/L (98-107); CREATININE 0.9 mg/dL (0.6-1.3); GLUCOSE 119 mg/dL (74-106); MAGNESIUM 1.9 mg/dL (1.8-2.4); PHOSPHORUS 2.6 mg/dL (2.5-4.9); SODIUM SERUM 134 mmol/L (136-145); UREA NITROGEN, BLOOD 12 mg/dL (7-18)
[2022-12-08 12:00] VITALS: BP 114/69
[2022-12-08] MEDS ORDERED: CEFE2FRO IV (12:01)
[2022-12-08] MEDS ORDERED: LACT-209 GT (12:01)
[2022-12-08] MEDS ORDERED: Prosource GT (12:01)
[2022-12-08 16:00] VITALS: BP 112/78
--- NOTE | 2022-12-08 19:04 | NUR ---
RN CLOSING NOTE PATIENT READY FOR D/C, STAY UNTIL TOMORROW. CONDITION STABLE, ALL MEDS GIVEN ON TIME, ALL NEEDS ATTENDED. WILL ENDORSE TO THE NEXT SHIFT NURSE FOR SARAI.
[2022-12-08 20:00] VITALS: BP 114/76
[2022-12-09] VITALS: BP 103/61
[2022-12-09 04:00] VITALS: BP 97/52
--- NOTE | 2022-12-09 06:31 | NUR ---
RN CLOSING NOTES, PATIENT IN BED, ASLEEP AT THIS TIME, ROOM AIR, NO SOB/ACUTE DISTRESS NOTED DURING THE NIGHT, BREATHING EVEN AND UNLABORED WITH O2 SAT> 97%, NSR IN TELE MONITOR, AFEBRILE, NO CHANGE IN CONDITION DURING THE NIGHT, CLEARED FOR DISCHARGE, ALL SAFETY MEASURES IN PLACE, BED LOCKED AND IN LOWEST POSITION, SIDE RAILS UP X3, BED ALARM ON, WILL ENDORSE FOR CONTINUITY OF CARE TO ONCOMING NURSE.
--- NOTE | 2022-12-09 07:00 | NUR ---
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 IV ACCESS ON RFA#22G INTACT AND PATENT AND FLUSHING WELL. G TUBE FEEDING WELL TOLERATED, NO RESIDUAL NOTED. RUNNING JEVITY 1.2 AT 40CC/HR. NO FACIAL GRIMACING NOTED. NO ACUTE DISTRESS. FLEMING CATH IN PLACE. DRAINING BY GRAVITY. RUNNING YELLOW COLOR URINE. KEEP HEAD OF BED ELEVATED. BILATERAL SOFT RESTRAINTS ON, CHECKED FOR CIRCULATION, ALL SAFETY MEASURES IN PLACE. BED IN LOWEST POSITION AND LOCKED. SIDE RAILS UP X3, PLACE CALL LIGHT WITHIN REACH. WILL CONTINUE TO MONITOR
[2022-12-09 08:00] VITALS: BP 130/77
[2022-12-09] MEDS: DAKINS QUARTER STRENGTH (0.125%) 480 ML BOTTLE TOP SCH (08:41)
[2022-12-09] MEDS: ASPIRIN 81 MG TAB.CHEW PO SCH (09:05)
[2022-12-09] MEDS: FOLIC ACID 1 MG TABLET PO SCH (09:05)
[2022-12-09] MEDS: CEFEPIME 2 GM in IV D5W 100 ML IV SCH ×2 (09:05→21:15)
[2022-12-09] MEDS: ASCORBIC ACID 500 MG TABLET PO SCH (09:05)
[2022-12-09] MEDS: PANTOPRAZOLE 40 MG/PACK PACK NG SCH (09:05)
[2022-12-09] MEDS: LEVETIRACETAM SOL (5 ML) 100 MG/ML UDC PO SCH ×2 (09:05→21:16)
[2022-12-09] MEDS: CHOLECALCIFEROL 1,000 UNIT TABLET (VIT D3) PO SCH (09:05)
[2022-12-09] MEDS: PROSOURCE / PROSTAT (PYXIS) 30 ML UDC GT SCH (09:06)
[2022-12-09] MEDS: METOPROLOL TARTRATE 25 MG TABLET PO SCH ×2 (09:06→16:28)
--- NOTE | 2022-12-09 09:07 | NUR ---
RN NOTE UNABLE TO GET ASPIRIN, MEDICATION PIXES MACHINE WAS EMPTY, NOT REFILLED BUT REGISTERED ASPIRIN WAS TAKEN. PIXES WAS CLOSED BACK AND ASPIRIN WAS TAKEN FROM THE OTHER PIXES. PHARMACY NOTIFIED.
--- NOTE | 2022-12-09 11:41 | NUR ---
PARKER NOTE SEEN BY DR BETSEY MUÑOZ TO DISCHARGE , ENRICHMENT ASSISTANT NOTIFIED
[2022-12-09 12:00] VITALS: BP_SYST 102; BP_DIAS 53; BP_DIAS 77
[2022-12-09] MEDS: JEVITY 1.2 CAL 1,000 ML BOTTLE GT PRN (12:11)
--- NOTE | 2022-12-09 15:00 | NUR ---
television operator note per pillowcase maker urban not discharge yet awaiting for authorization
[2022-12-09 16:00] VITALS: BP 108/64
[2022-12-09 20:00] VITALS: BP 125/69
[2022-12-10 04:00] VITALS: BP 117/69
[2022-12-10] MEDS: JEVITY 1.2 CAL 1,000 ML BOTTLE GT PRN (06:15)
--- NOTE | 2022-12-10 06:45 | NUR ---
RN CLOSING NOTES, PATIENT IN BED, ASLEEP AT THIS TIME,AROUSES TO TACTILE STIMULI, AT ROOM AIR, NO SOB/ACUTE DISTRESS NOTED DURING THE NIGHT, WITH O2 SAT> 97%, MS STATUS, AFEBRILE, NO CHANGE IN CONDITION DURING THE NIGHT, GT IN PLACED, PATIENT TOLERATED GTF WELL, NO RESIDUAL NOTED, CLEARED FOR DISCHARGE, ALL SAFETY MEASURES IN PLACE, BED LOCKED AND IN LOWEST POSITION, SIDE RAILS UP X3, BED ALARM ON, WILL ENDORSE FOR CONTINUITY OF CARE TO ONCOMING NURSE.
--- NOTE | 2022-12-10 07:25 | NUR ---
PROCESS CONTROL ENGINEER OPENING NOTES Received pt awake in bed AOX1. Non verbal and unable to follow command. No signs of pain or discomfort at this time. Pt is on RA and tolerating it well. IV access omn RFA 20G patent and intact. GT patent and intact running GTF at prescribed settings. HOB elevated to 30-45 degrees. Siderails up at all times. Call light within reach. Will continue to monitor.
[2022-12-10 08:00] VITALS: BP 160/71
[2022-12-10] MEDS: FOLIC ACID 1 MG TABLET PO SCH (09:48)
[2022-12-10] MEDS: METOPROLOL TARTRATE 25 MG TABLET PO SCH (09:48)
[2022-12-10] MEDS: PROSOURCE / PROSTAT (PYXIS) 30 ML UDC GT SCH (09:48)
[2022-12-10] MEDS: ASPIRIN 81 MG TAB.CHEW PO SCH (09:48)
[2022-12-10] MEDS: LEVETIRACETAM SOL (5 ML) 100 MG/ML UDC PO SCH (09:48)
[2022-12-10] MEDS: ASCORBIC ACID 500 MG TABLET PO SCH (09:48)
[2022-12-10] MEDS: CHOLECALCIFEROL 1,000 UNIT TABLET (VIT D3) PO SCH (09:48)
[2022-12-10] MEDS: DAKINS QUARTER STRENGTH (0.125%) 480 ML BOTTLE TOP SCH (09:49)
[2022-12-10] MEDS: PANTOPRAZOLE 40 MG/PACK PACK NG SCH (09:49)
[2022-12-10] MEDS: CEFEPIME 2 GM in IV D5W 100 ML IV SCH (09:52)
--- NOTE | 2022-12-10 10:30 | NUR ---
LARD TUB WASHER NOTES Pt BP rechecked and is 141/58.
--- NOTE | 2022-12-10 13:36 | NUR ---
CASE MANAGEMENT NOTIFIED ABOUT DC.
[2022-12-10 15:04] VITALS: BP 168/70
--- NOTE | 2022-12-10 15:55 | NUR ---
CRM MARKETING SPECIALIST NOTES Pt cleaered for d/c to [facility]. Report given to MIRNA Whitehead.
--- NOTE | 2022-12-10 16:40 | NUR ---
TOOTH CUTTER PINION NOTES Pt picked up by CESAR Nieves. Paperwork and report given to EMT. IV access taken out. Transferred from bed to [facility] safely.
== END 2022-12-10 16:51 | DRG 981 ==
LOC: ER 23:04 → TELE1 12-03 05:11 → MEDSG1 12-09 14:03
PROVIDERS: ADMIT Nurse Practitioner Acute Care; ATTEND Nurse Practitioner Acute Care
PROC: 0QB10ZZ Excision of Sacrum, Open Approach (ICD-10-PCS; principal; 2022-12-05)
PROC: 0DH63UZ Insertion of Feeding Device into Stomach, Percutaneous Approach (ICD-10-PCS; 2022-12-06)
DX: K94.23 Gastrostomy malfunction (principal); A41.9 Sepsis, unspecified organism; L89.124 Pressure ulcer of left upper back, stage 4; E43 Unspecified severe protein-calorie malnutrition; G92.8 Other toxic encephalopathy; L89.154 Pressure ulcer of sacral region, stage 4; R53.2 Functional quadriplegia; J69.0 Pneumonitis due to inhalation of food and vomit; E87.1 Hypo-osmolality and hyponatremia; D68.59 Other primary thrombophilia; I69.354 Hemiplegia and hemiparesis following cerebral infarction affecting left non-dominant side; R64 Cachexia; Z68.1 Body mass index [BMI] 19.9 or less, adult; N39.0 Urinary tract infection, site not specified; I12.9 Hypertensive chronic kidney disease with stage 1 through stage 4 chronic kidney disease, or unspecified chronic kidney disease; Y83.3 Surgical operation with formation of external stoma as the cause of abnormal reaction of the patient, or of later complication, without mention of misadventure at the time of the procedure; Y92.129 Unspecified place in nursing home as the place of occurrence of the external cause; N18.9 Chronic kidney disease, unspecified; I25.10 Atherosclerotic heart disease of native coronary artery without angina pectoris; R13.10 Dysphagia, unspecified; G40.909 Epilepsy, unspecified, not intractable, without status epilepticus; Z20.822 Contact with and (suspected) exposure to COVID-19; E78.5 Hyperlipidemia, unspecified; I25.2 Old myocardial infarction; R26.2 Difficulty in walking, not elsewhere classified; E55.9 Vitamin D deficiency, unspecified; Z79.82 Long term (current) use of aspirin; Z79.899 Other long term (current) drug therapy; K66.8 Other specified disorders of peritoneum; N32.9 Bladder disorder, unspecified; E87.6 Hypokalemia; D64.9 Anemia, unspecified; E88.09 Other disorders of plasma-protein metabolism, not elsewhere classified; Z74.01 Bed confinement status; Z87.01 Personal history of pneumonia (recurrent); Z86.16 Personal history of COVID-19; N40.0 Benign prostatic hyperplasia without lower urinary tract symptoms; K29.70 Gastritis, unspecified, without bleeding; B96.89 Other specified bacterial agents as the cause of diseases classified elsewhere; F03.90 Unspecified dementia, unspecified severity, without behavioral disturbance, psychotic disturbance, mood disturbance, and anxiety; M62.422 Contracture of muscle, left upper arm; M62.421 Contracture of muscle, right upper arm; F09 Unspecified mental disorder due to known physiological condition; K56.41 Fecal impaction
CPT/HCPCS: 36415; 43246; 71045-TC; 74018; 80048-TC; 80076-TC; 81001; 82962-TC; 83605-TC; 83735-TC; 84100-TC; 84484-TC; 85025-TC; 85730-TC; 87040-TC; 87086-TC; A4223; C9113; C9803; G0378; J0282; J0692; J1953; J2270; J2370; J2543; J2704; J3370; J3475; J3480; J3490; J7030; J7050; J7060; J7070; Q9963

== ENCOUNTER 2023-01-30 13:53 | Inpatient (IN) | payer MEDICARE, MEDICAID ==
[~2023-01-30] VITALS: Ht 177.8 cm; Wt 55.3 kg
[~2023-01-30 13:53] MED LIST changes: +ACET-868 GT; -ACET-868 PO; +ASCO-340 GT; -ASCO-340 PO; +ASPI-1169 GT; -ASPI-1169 PO; +CEFE2FRO IV; +LACT-209 GT; +MAGN400O6 GT; -MAGN400O6 PO; +METO25TA20 GT; -METO25TA20 PO; +OXYC-128 GT; -OXYC-128 PO; +Prosource GT; +SENN-261 GT; -SENN-261 PO
[2023-01-30] MEDS ORDERED: VANCOMYCIN 1 GM in IV D5W 250 ML IV ONE (14:30)
[2023-01-30] MEDS ORDERED: PIPERACILLIN /TAZOBACTAM 3.375 G in IV D5W 50 ML IV ONE (14:30)
[2023-01-30] MEDS ORDERED: IV NS 0.9% 1,000 ML BAG IV ONE (14:30)
[2023-01-30 14:45] LABS: BASOPHILS # (AUTO) 0.1 K/uL (0.0-0.2); BASOPHILS % (AUTO) 0.4 % (0.0-2.0); EOSINOPHILS % (AUTO) 2.1 % (0.0-6.0); HEMATOCRIT 26 % (39-51); HEMOGLOBIN 8.1 g/dL (13.5-17.5); LYMPHOCYTES # (AUTO) 1.7 K/uL (0.8-4.8); LYMPHOCYTES % (AUTO) 12.2 % (20.0-44.0); MEAN CORPUSCULAR HGB CONC 31 g/dl (31.0-36.0); MEAN CORPUSCULAR VOLUME 82 fL (80-96); MONOCYTES # (AUTO) 0.9 K/uL (0.1-1.30); MONOCYTES % (AUTO) 6.8 % (2.0-12.0); NEUTROPHILS # (AUTO) 10.9 K/uL (1.8-8.9); NEUTROPHILS % (AUTO) 78.5 % (43.0-81.0); PLATELET COUNT (AUTO) 506 K/uL (150-450); RED BLOOD CELL COUNT(AUTO) 3.16 MIL/uL (4.5-6.0); WHITE BLOOD COUNT (AUTO) 13.9 K/uL (4.3-11.0)
[2023-01-30 15:00] LABS: ALANINE AMINOTRANSFERASE 166 U/L (12-78); ALBUMIN 2.4 g/dL (3.4-5.0); ALKALINE PHOSPHATASE 116 U/L (46-116); ASPARTATE AMINOTRANSFERASE 134 U/L (15-37); BILIRUBIN,DIRECT 0.1 mg/dL (0.0-0.2); BILIRUBIN,TOTAL 0.3 mg/dL (0.2-1.0); C-REACTIVE PROTEIN 11.6 mg/dL (0.0-0.9); CALCIUM, SERUM 10.5 mg/dL (8.5-10.1); CARBON DIOXIDE 29 mmol/L (21-32); CHLORIDE 105 mmol/L (98-107); CREATININE 1.9 mg/dL (0.6-1.3); GLUCOSE 98 mg/dL (74-106); POTASSIUM 5.7 mmol/L (3.5-5.1); SODIUM SERUM 142 mmol/L (136-145); TOTAL PROTEIN, SERUM 10.4 g/dL (6.4-8.2)
[2023-01-30 15:02] LABS: UREA NITROGEN, BLOOD 104 mg/dL (7-18)
[2023-01-30 15:21] LABS: BILIRUBIN,URINE NEGATIVE (NEGATIVE); COLOR,URINE YELLOW (YELLOW); LEUKOCYTE ESTERASE ,URINE 2+ (NEGATIVE); NITRITE, URINE NEGATIVE (NEGATIVE); PROTEIN,URINE 1+ mg/dl (NEGATIVE); UGLUCOSE NEGATIVE (NEGATIVE)
[2023-01-30 15:25] LABS: PH,URINE >8.5 (5.0-8.0)
[2023-01-30] MEDS ORDERED: MULT9LIQ GT (15:25)
[2023-01-30] MEDS ORDERED: LISI10TA29 GT (15:25)
[2023-01-30] MEDS ORDERED: CRAN3875 GT (15:25)
[2023-01-30] MEDS ORDERED: LEVO50TA8 GT (15:25)
[2023-01-30] MEDS ORDERED: FOLI20CA GT (15:25)
[2023-01-30] MEDS ORDERED: ACET-2605 GT (15:25)
[2023-01-30] MEDS ORDERED: BISA10SU11 RC (15:25)
[2023-01-30] MEDS ORDERED: FERR220S2 GT (15:25)
[2023-01-30] MEDS ORDERED: CHOL200059 GT (15:25)
[2023-01-30] MEDS ORDERED: NA P133E RC (15:25)
[2023-01-30] MEDS ORDERED: AMIN30LI2 GT (15:25)
[2023-01-30] MEDS ORDERED: LEVE100S GT (15:25)
[2023-01-30] MEDS ORDERED: ZINC1CAP2 GT (15:25)
[2023-01-30] MEDS ORDERED: FOLI0.4T6 GT (15:40)
[2023-01-30] MEDS ORDERED: LACT-96 GT (15:40)
[2023-01-30 15:43] LABS: BACTERIA,URINE 2+ /HPF (None Seen); SQUAMOUS EPITHELIAL CELL,UR 0-2 /HPF (None Seen); TRIPLE PHOSPHATE CRYSTAL,UR Moderate /HPF (None Seen); WBC,URINE 21-50 /HPF (0-3)
[2023-01-30] MEDS ORDERED: SODIUM BICARBONATE SYR 50 MEQ/50 ML DISP.SYRIN IV ONE (16:00)
[2023-01-30] MEDS ORDERED: SODIUM POLYSTYRENE SULFONATE 15 G/60 ML BOTTLE PO ONE (16:00)
[2023-01-30] MEDS ORDERED: SODIUM BICARBONATE SYR 50 MEQ/50 ML DISP.SYRIN ONE (16:16)
[2023-01-30] MEDS ORDERED: SODIUM POLYSTYRENE SULFONATE 15 G/60 ML BOTTLE ONE (17:01)
[2023-01-30] MEDS ORDERED: ONDANSETRON HCL/PF 4 MG/2 ML VIAL IVP PRN (17:30)
[2023-01-30] MEDS ORDERED: HYDROCODONE/APAP 5/325MG TABLET PO PRN (17:30)
[2023-01-30] MEDS ORDERED: IV 1/2NS 1000 ML 1,000 ML IV PRN (17:30)
[2023-01-30] MEDS ORDERED: ACETAMINOPHEN 325 MG TABLET PO PRN (17:30)
[2023-01-30] MEDS ORDERED: Z GUARD REMEDY 4 OZ OINT TP PRN (17:30)
[2023-01-30] MEDS ORDERED: IV NS 0.9% 1,000 ML IV ONE (17:30)
[2023-01-30 17:51] LABS: EOSINOPHILS % (MANUAL) 2 % (0-4); LYMPHOCYTES % (MANUAL) 16 % (16-48); MONOCYTES % (MANUAL) 7 % (0-11.0); NEUTROPHILS % (MANUAL) 75 (42-76)
[2023-01-30] MEDS ORDERED: CEFEPIME 2 GM in IV D5W 100 ML IV ONE (19:00)
[2023-01-30 20:00] VITALS: BP 80/55
[2023-01-31] VITALS (31 sets, daily range): BP systolic 58–128; BP diastolic 31–98
[2023-01-31] MEDS ORDERED: CEFEPIME 1 GM VIAL ONE (00:16)
[2023-01-31] MEDS ORDERED: PANTOPRAZOLE 40 MG TABLET.DR PO SCH (07:30)
[2023-01-31 08:57] LABS: BASOPHILS # (AUTO) 0.1 K/uL (0.0-0.2); BASOPHILS % (AUTO) 0.5 % (0.0-2.0); EOSINOPHILS % (AUTO) 2.5 % (0.0-6.0); HEMATOCRIT 23 % (39-51); LYMPHOCYTES % (AUTO) 16.1 % (20.0-44.0); MEAN CORPUSCULAR HGB CONC 30 g/dl (31.0-36.0); MEAN CORPUSCULAR VOLUME 83 fL (80-96); MONOCYTES % (AUTO) 7.8 % (2.0-12.0); NEUTROPHILS % (AUTO) 73.1 % (43.0-81.0); PLATELET COUNT (AUTO) 384 K/uL (150-450); RED BLOOD CELL COUNT(AUTO) 2.78 MIL/uL (4.5-6.0); WHITE BLOOD COUNT (AUTO) 12.3 K/uL (4.3-11.0)
[2023-01-31 09:35] LABS: CALCIUM, SERUM 9.9 mg/dL (8.5-10.1); CARBON DIOXIDE 27 mmol/L (21-32); CHLORIDE 109 mmol/L (98-107); CREATININE 1.6 mg/dL (0.6-1.3); GLUCOSE 71 mg/dL (74-106); MAGNESIUM 2.8 mg/dL (1.8-2.4); POTASSIUM 4.5 mmol/L (3.5-5.1); SODIUM SERUM 143 mmol/L (136-145)
[2023-01-31 09:36] LABS: UREA NITROGEN, BLOOD 85 mg/dL (7-18)
[2023-01-31] MEDS ORDERED: IV NS 0.9% 1,000 ML IV ONE ×2 (10:00→13:00)
[2023-01-31 10:04] LABS: CHOLESTEROL 124 mg/dL (<200); HDL CHOLESTEROL 48 mg/dL (40-60); LDL 64 mg/dL (0-99); TRIGLYCERIDES 55 mg/dL (30-150)
[2023-01-31] MEDS ORDERED: ACETAMINOPHEN 650 MG/20.3 ML UDC GT PRN (12:00)
[2023-01-31] MEDS: PANTOPRAZOLE 40 MG/PACK PACK GT SCH (12:04)
[2023-01-31] MEDS: JEVITY 1.2 CAL 1,000 ML BOTTLE GT PRN (12:11)
[2023-01-31] MEDS ORDERED: VANCOMYCIN HCL 0.75 GM in IV D5W 250 ML IV SCH (15:00)
[2023-01-31] MEDS ORDERED: PHENYLEPHRINE 50 MG in IV NS 0.9% 245 ML IV PRN (15:00)
[2023-01-31] MEDS ORDERED: VANCOMYCIN 1 GM in IV D5W 250 ML IV SCH (15:00)
[2023-01-31] MEDS: DAKINS QUARTER STRENGTH (0.125%) 480 ML BOTTLE TOP SCH (16:45)
[2023-01-31] MEDS ORDERED: CEFEPIME 1 GM in IV D5W 50 ML IV SCH (19:00)
[2023-01-31] MEDS ORDERED: CEFEPIME 2 GM in IV D5W 100 ML IV SCH (21:00)
[2023-02-01] VITALS (27 sets, daily range): BP systolic 104–165; BP diastolic 65–114
[2023-02-01] MEDS: IV 1/2NS 1000 ML 1,000 ML IV PRN ×2 (02:59→17:38)
[2023-02-01 05:22] LABS: BASOPHILS # (AUTO) 0.1 K/uL (0.0-0.2); BASOPHILS % (AUTO) 0.5 % (0.0-2.0); EOSINOPHILS % (AUTO) 3.7 % (0.0-6.0); HEMATOCRIT 21 % (39-51); LYMPHOCYTES # (AUTO) 1.7 K/uL (0.8-4.8); LYMPHOCYTES % (AUTO) 13.1 % (20.0-44.0); MEAN CORPUSCULAR HGB CONC 30 g/dl (31.0-36.0); MEAN CORPUSCULAR VOLUME 84 fL (80-96); MONOCYTES # (AUTO) 0.8 K/uL (0.1-1.30); MONOCYTES % (AUTO) 6.4 % (2.0-12.0); NEUTROPHILS % (AUTO) 76.3 % (43.0-81.0); PLATELET COUNT (AUTO) 368 K/uL (150-450); RED BLOOD CELL COUNT(AUTO) 2.47 MIL/uL (4.5-6.0); WHITE BLOOD COUNT (AUTO) 13.1 K/uL (4.3-11.0)
[2023-02-01 05:34] LABS: HEMOGLOBIN 6.3 g/dL (13.5-17.5)
[2023-02-01 05:35] LABS: ALANINE AMINOTRANSFERASE 84 U/L (12-78); ALBUMIN 1.9 g/dL (3.4-5.0); ALKALINE PHOSPHATASE 90 U/L (46-116); ASPARTATE AMINOTRANSFERASE 80 U/L (15-37); BILIRUBIN,DIRECT 0.1 mg/dL (0.0-0.2); BILIRUBIN,TOTAL 0.3 mg/dL (0.2-1.0); CALCIUM, SERUM 9.8 mg/dL (8.5-10.1); CARBON DIOXIDE 26 mmol/L (21-32); CHLORIDE 111 mmol/L (98-107); CREATININE 1.1 mg/dL (0.6-1.3); GLUCOSE 95 mg/dL (74-106); MAGNESIUM 2.3 mg/dL (1.8-2.4); PHOSPHORUS 3.1 mg/dL (2.5-4.9); POTASSIUM 4.1 mmol/L (3.5-5.1); SODIUM SERUM 140 mmol/L (136-145); TOTAL PROTEIN, SERUM 8.6 g/dL (6.4-8.2); UREA NITROGEN, BLOOD 48 mg/dL (7-18)
[2023-02-01 05:57] LABS: THYROID STIMULATING HORMONE 18.971 uIU/mL (0.358-3.74)
[2023-02-01 07:44] LABS: EOSINOPHILS % (MANUAL) 5 % (0-4); LYMPHOCYTES % (MANUAL) 15 % (16-48); MONOCYTES % (MANUAL) 6 % (0-11.0); NEUTROPHILS % (MANUAL) 74 (42-76)
[2023-02-01] MEDS: DAKINS QUARTER STRENGTH (0.125%) 480 ML BOTTLE TOP SCH (08:18)
[2023-02-01] MEDS: PANTOPRAZOLE 40 MG/PACK PACK GT SCH (08:18)
[2023-02-01] MEDS: CEFEPIME 2 GM in IV D5W 100 ML IV SCH ×2 (09:10→21:03)
[2023-02-01 09:15] LABS: CREATININE, URINE 32.1 MG/DL (30.0-125.0)
[2023-02-01] MEDS: VANCOMYCIN 0.75 GM in IV D5W 250 ML IV SCH ×2 (09:47→22:06)
[2023-02-01] MEDS: JEVITY 1.2 CAL 1,000 ML BOTTLE GT PRN (11:47)
[2023-02-01] MEDS ORDERED: BISACODYL SUPP (10 MG) 10 MG/SUPP.RECT SUPP.RECT RC PRN (13:00)
[2023-02-01] MEDS: PROSOURCE / PROSTAT (PYXIS) 30 ML UDC GT SCH ×2 (13:39→16:34)
[2023-02-01] MEDS ORDERED: LEVOTHYROXINE SODIUM 75 MCG TABLET GT ONE (14:00)
[2023-02-01] MEDS: HYDROCODONE/APAP 5/325MG TABLET GT PRN (16:10)
[2023-02-01] MEDS: SOD FERRIC GLUC 125 MG in IV NS 0.9% 100 ML IV SCH (16:32)
[2023-02-01] MEDS ORDERED: hydrALAZINE HCL IV 20 MG VIAL IV PRN (18:30)
[2023-02-01 18:45] LABS: OCCULT BLOOD STOOL NEGATIVE (NEGATIVE)
[2023-02-01] MEDS: SENNOSIDES 8.6 MG TABLET GT SCH (21:03)
[2023-02-01] MEDS: LEVETIRACETAM SOL (5 ML) 100 MG/ML UDC GT SCH (21:05)
[2023-02-02] VITALS (15 sets, daily range): BP systolic 99–204; BP diastolic 60–104
[2023-02-02] MEDS: HYDROCODONE/APAP 5/325MG TABLET GT PRN ×3 (03:27→15:11)
[2023-02-02] MEDS: JEVITY 1.2 CAL 1,000 ML BOTTLE GT PRN ×3 (04:33→20:44)
[2023-02-02] MEDS: IV 1/2NS 1000 ML 1,000 ML IV PRN ×2 (04:33→20:43)
[2023-02-02 05:24] LABS: BASOPHILS # (AUTO) 0.1 K/uL (0.0-0.2); BASOPHILS % (AUTO) 0.5 % (0.0-2.0); EOSINOPHILS % (AUTO) 5.1 % (0.0-6.0); HEMATOCRIT 27 % (39-51); HEMOGLOBIN 8.5 g/dL (13.5-17.5); LYMPHOCYTES # (AUTO) 1.6 K/uL (0.8-4.8); LYMPHOCYTES % (AUTO) 13.8 % (20.0-44.0); MEAN CORPUSCULAR HGB CONC 32 g/dl (31.0-36.0); MEAN CORPUSCULAR VOLUME 84 fL (80-96); MONOCYTES # (AUTO) 0.7 K/uL (0.1-1.30); MONOCYTES % (AUTO) 6.1 % (2.0-12.0); NEUTROPHILS # (AUTO) 8.6 K/uL (1.8-8.9); NEUTROPHILS % (AUTO) 74.5 % (43.0-81.0); PLATELET COUNT (AUTO) 386 K/uL (150-450); RED BLOOD CELL COUNT(AUTO) 3.16 MIL/uL (4.5-6.0); WHITE BLOOD COUNT (AUTO) 11.5 K/uL (4.3-11.0)
[2023-02-02 05:39] LABS: CALCIUM, SERUM 9.4 mg/dL (8.5-10.1); CARBON DIOXIDE 22 mmol/L (21-32); CHLORIDE 105 mmol/L (98-107); CREATININE 0.8 mg/dL (0.6-1.3); GLUCOSE 100 mg/dL (74-106); PHOSPHORUS 2.8 mg/dL (2.5-4.9); POTASSIUM 4.1 mmol/L (3.5-5.1); SODIUM SERUM 133 mmol/L (136-145); UREA NITROGEN, BLOOD 34 mg/dL (7-18)
[2023-02-02] MEDS: PANTOPRAZOLE 40 MG/PACK PACK GT SCH (08:07)
[2023-02-02] MEDS: ZINC SULFATE 220 MG CAPSULE GT SCH (08:07)
[2023-02-02] MEDS: FOLIC ACID 1 MG TABLET GT SCH (08:07)
[2023-02-02] MEDS: CEFEPIME 2 GM in IV D5W 100 ML IV SCH ×2 (08:07→21:33)
[2023-02-02] MEDS: ASCORBIC ACID 500 MG TABLET GT SCH (08:07)
[2023-02-02] MEDS: CHOLECALCIFEROL 1,000 UNIT TABLET (VIT D3) GT SCH (08:07)
[2023-02-02] MEDS: PROSOURCE / PROSTAT (PYXIS) 30 ML UDC GT SCH ×4 (08:07→16:08)
[2023-02-02] MEDS: MULTIVIT W/MINERALS 1 TAB TABLET GT SCH (08:07)
[2023-02-02] MEDS: LEVETIRACETAM SOL (5 ML) 100 MG/ML UDC GT SCH ×2 (08:07→20:42)
[2023-02-02] MEDS: LEVOTHYROXINE SODIUM 75 MCG TABLET GT SCH (08:07)
[2023-02-02] MEDS: DAKINS QUARTER STRENGTH (0.125%) 480 ML BOTTLE TOP SCH (08:08)
[2023-02-02] MEDS: VANCOMYCIN 0.75 GM in IV D5W 250 ML IV SCH ×2 (09:11→22:00)
[2023-02-02] MEDS: ARGININE/GLUTAMINE/CALCIUM BMB 1 EACH POWD.PACK PEG SCH ×2 (09:42→16:07)
[2023-02-02] MEDS: SOD FERRIC GLUC 125 MG in IV NS 0.9% 100 ML IV SCH (15:29)
[2023-02-02] MEDS: SENNOSIDES 8.6 MG TABLET GT SCH (22:40)
[2023-02-03] VITALS (7 sets, daily range): BP systolic 74–115; BP diastolic 48–73
[2023-02-03 07:51] LABS: CALCIUM, SERUM 8.9 mg/dL (8.5-10.1); CREATININE 0.8 mg/dL (0.6-1.3); MAGNESIUM 1.8 mg/dL (1.8-2.4); PHOSPHORUS 2.6 mg/dL (2.5-4.9); POTASSIUM 4.4 mmol/L (3.5-5.1)
[2023-02-03 08:48] LABS: BASOPHILS # (AUTO) 0.1 K/uL (0.0-0.2); BASOPHILS % (AUTO) 0.6 % (0.0-2.0); EOSINOPHILS % (AUTO) 4.1 % (0.0-6.0); HEMATOCRIT 27 % (39-51); HEMOGLOBIN 8.4 g/dL (13.5-17.5); LYMPHOCYTES # (AUTO) 1.4 K/uL (0.8-4.8); LYMPHOCYTES % (AUTO) 12.9 % (20.0-44.0); MEAN CORPUSCULAR HGB CONC 31 g/dl (31.0-36.0); MEAN CORPUSCULAR VOLUME 85 fL (80-96); MONOCYTES # (AUTO) 0.8 K/uL (0.1-1.30); MONOCYTES % (AUTO) 7.2 % (2.0-12.0); NEUTROPHILS # (AUTO) 8.3 K/uL (1.8-8.9); NEUTROPHILS % (AUTO) 75.2 % (43.0-81.0); PLATELET COUNT (AUTO) 389 K/uL (150-450)
[2023-02-03] MEDS: PANTOPRAZOLE 40 MG/PACK PACK GT SCH (09:00)
[2023-02-03] MEDS: CEFEPIME 2 GM in IV D5W 100 ML IV SCH ×2 (09:44→21:44)
[2023-02-03] MEDS: LEVETIRACETAM SOL (5 ML) 100 MG/ML UDC GT SCH ×2 (09:47→21:43)
[2023-02-03] MEDS: VANCOMYCIN 500 MG in IV D5W 100ml IV SCH ×2 (09:47→22:59)
[2023-02-03] MEDS: ARGININE/GLUTAMINE/CALCIUM BMB 1 EACH POWD.PACK PEG SCH ×2 (09:48→17:21)
[2023-02-03] MEDS: PROSOURCE / PROSTAT (PYXIS) 30 ML UDC GT SCH ×4 (09:48→17:21)
[2023-02-03] MEDS: MULTIVIT W/MINERALS 1 TAB TABLET GT SCH (09:49)
[2023-02-03] MEDS: CHOLECALCIFEROL 1,000 UNIT TABLET (VIT D3) GT SCH (09:49)
[2023-02-03] MEDS: ZINC SULFATE 220 MG CAPSULE GT SCH (09:49)
[2023-02-03] MEDS: FOLIC ACID 1 MG TABLET GT SCH (09:50)
[2023-02-03] MEDS: LEVOTHYROXINE SODIUM 75 MCG TABLET GT SCH (09:50)
[2023-02-03] MEDS: ASCORBIC ACID 500 MG TABLET GT SCH (09:51)
[2023-02-03] MEDS: DAKINS QUARTER STRENGTH (0.125%) 480 ML BOTTLE TOP SCH (09:59)
[2023-02-03] MEDS: CADEXOMER IODINE 40 GM TUBE TP SCH (12:44)
[2023-02-03] MEDS: SOD FERRIC GLUC 125 MG in IV NS 0.9% 100 ML IV SCH (13:40)
[2023-02-03] MEDS: IV 1/2NS 1000 ML 1,000 ML IV PRN (15:08)
[2023-02-03] MEDS: CLOTRIMAZOLE 1% 15 GM TUBE TP SCH (17:28)
[2023-02-03] MEDS: JEVITY 1.2 CAL 1,000 ML BOTTLE GT PRN (17:50)
[2023-02-03] MEDS: SENNOSIDES 8.6 MG TABLET GT SCH (21:44)
[2023-02-04] MEDS: HYDROCODONE/APAP 5/325MG TABLET GT PRN (01:34)
[2023-02-04 04:17] VITALS: BP 113/56
[2023-02-04 06:55] LABS: CALCIUM, SERUM 9.1 mg/dL (8.5-10.1); CREATININE 0.8 mg/dL (0.6-1.3); POTASSIUM 3.9 mmol/L (3.5-5.1)
[2023-02-04 08:31] LABS: BASOPHILS # (AUTO) 0.1 K/uL (0.0-0.2); BASOPHILS % (AUTO) 0.5 % (0.0-2.0); EOSINOPHILS % (AUTO) 5.2 % (0.0-6.0); HEMATOCRIT 25 % (39-51); HEMOGLOBIN 7.7 g/dL (13.5-17.5); LYMPHOCYTES # (AUTO) 1.9 K/uL (0.8-4.8); LYMPHOCYTES % (AUTO) 17.3 % (20.0-44.0); MEAN CORPUSCULAR HGB CONC 31 g/dl (31.0-36.0); MEAN CORPUSCULAR VOLUME 84 fL (80-96); MONOCYTES # (AUTO) 0.7 K/uL (0.1-1.30); MONOCYTES % (AUTO) 6.5 % (2.0-12.0); NEUTROPHILS # (AUTO) 7.7 K/uL (1.8-8.9); NEUTROPHILS % (AUTO) 70.5 % (43.0-81.0); PLATELET COUNT (AUTO) 355 K/uL (150-450); RED BLOOD CELL COUNT(AUTO) 2.92 MIL/uL (4.5-6.0); WHITE BLOOD COUNT (AUTO) 10.9 K/uL (4.3-11.0)
[2023-02-04] MEDS: DAKINS QUARTER STRENGTH (0.125%) 480 ML BOTTLE TOP SCH ×2 (09:00→09:35)
[2023-02-04 09:23] VITALS: BP 108/61
[2023-02-04] MEDS: CEFEPIME 2 GM in IV D5W 100 ML IV SCH ×2 (09:28→21:46)
[2023-02-04] MEDS: LEVETIRACETAM SOL (5 ML) 100 MG/ML UDC GT SCH ×2 (09:29→21:58)
[2023-02-04] MEDS: ARGININE/GLUTAMINE/CALCIUM BMB 1 EACH POWD.PACK PEG SCH ×2 (09:29→17:39)
[2023-02-04] MEDS: LEVOTHYROXINE SODIUM 75 MCG TABLET GT SCH (09:29)
[2023-02-04] MEDS: PROSOURCE / PROSTAT (PYXIS) 30 ML UDC GT SCH ×3 (09:29→17:39)
[2023-02-04] MEDS: ASCORBIC ACID 500 MG TABLET GT SCH (09:29)
[2023-02-04] MEDS: MULTIVIT W/MINERALS 1 TAB TABLET GT SCH (09:30)
[2023-02-04] MEDS: ZINC SULFATE 220 MG CAPSULE GT SCH (09:31)
[2023-02-04] MEDS: FOLIC ACID 1 MG TABLET GT SCH (09:31)
[2023-02-04] MEDS: PANTOPRAZOLE 40 MG/PACK PACK GT SCH (09:32)
[2023-02-04] MEDS: CHOLECALCIFEROL 1,000 UNIT TABLET (VIT D3) GT SCH (09:32)
[2023-02-04] MEDS: CLOTRIMAZOLE 1% 15 GM TUBE TP SCH ×2 (09:34→17:40)
[2023-02-04] MEDS: CADEXOMER IODINE 40 GM TUBE TP SCH ×3 (09:36→10:28)
[2023-02-04] MEDS: VANCOMYCIN 500 MG in IV D5W 100ml IV SCH ×2 (10:29→23:28)
[2023-02-04] MEDS: JEVITY 1.2 CAL 1,000 ML BOTTLE GT PRN ×2 (10:51→23:16)
[2023-02-04 13:13] VITALS: BP 95/71
[2023-02-04] MEDS: SOD FERRIC GLUC 125 MG in IV NS 0.9% 100 ML IV SCH (14:11)
[2023-02-04] MEDS: IV 1/2NS 1000 ML 1,000 ML IV PRN (14:20)
[2023-02-04 18:45] VITALS: BP 111/74
[2023-02-04 20:00] VITALS: BP 92/51
[2023-02-04] MEDS: SENNOSIDES 8.6 MG TABLET GT SCH (21:58)
[2023-02-05] VITALS: BP 106/55
[2023-02-05] MEDS: HYDROCODONE/APAP 5/325MG TABLET GT PRN (01:36)
[2023-02-05 04:00] VITALS: BP 104/55
[2023-02-05] MEDS: IV 1/2NS 1000 ML 1,000 ML IV PRN (05:04)
[2023-02-05 06:22] LABS: BASOPHILS % (AUTO) 0.5 % (0.0-2.0); EOSINOPHILS % (AUTO) 4.1 % (0.0-6.0); HEMATOCRIT 28 % (39-51); HEMOGLOBIN 8.7 g/dL (13.5-17.5); LYMPHOCYTES % (AUTO) 13.6 % (20.0-44.0); MEAN CORPUSCULAR HGB CONC 31 g/dl (31.0-36.0); MEAN CORPUSCULAR VOLUME 86 fL (80-96); MONOCYTES % (AUTO) 5.8 % (2.0-12.0); PLATELET COUNT (AUTO) 358 K/uL (150-450); RED BLOOD CELL COUNT(AUTO) 3.28 MIL/uL (4.5-6.0); WHITE BLOOD COUNT (AUTO) 12.7 K/uL (4.3-11.0)
[2023-02-05 06:23] LABS: BASOPHILS # (AUTO) 0.1 K/uL (0.0-0.2); LYMPHOCYTES # (AUTO) 1.7 K/uL (0.8-4.8); MONOCYTES # (AUTO) 0.7 K/uL (0.1-1.30); NEUTROPHILS # (AUTO) 9.6 K/uL (1.8-8.9)
[2023-02-05 06:46] LABS: CALCIUM, SERUM 9.2 mg/dL (8.5-10.1); CREATININE 0.6 mg/dL (0.6-1.3); POTASSIUM 4.3 mmol/L (3.5-5.1)
[2023-02-05 08:50] VITALS: BP 134/53
[2023-02-05] MEDS: CHOLECALCIFEROL 1,000 UNIT TABLET (VIT D3) GT SCH (08:59)
[2023-02-05] MEDS: LEVOTHYROXINE SODIUM 75 MCG TABLET GT SCH (08:59)
[2023-02-05] MEDS: ASCORBIC ACID 500 MG TABLET GT SCH (08:59)
[2023-02-05] MEDS: FOLIC ACID 1 MG TABLET GT SCH (08:59)
[2023-02-05] MEDS: MULTIVIT W/MINERALS 1 TAB TABLET GT SCH (08:59)
[2023-02-05] MEDS: ZINC SULFATE 220 MG CAPSULE GT SCH (08:59)
[2023-02-05] MEDS: PANTOPRAZOLE 40 MG/PACK PACK GT SCH (08:59)
[2023-02-05] MEDS: LEVETIRACETAM SOL (5 ML) 100 MG/ML UDC GT SCH (08:59)
[2023-02-05] MEDS: ARGININE/GLUTAMINE/CALCIUM BMB 1 EACH POWD.PACK PEG SCH ×2 (09:01→18:06)
[2023-02-05] MEDS: PROSOURCE / PROSTAT (PYXIS) 30 ML UDC GT SCH ×3 (09:01→18:06)
[2023-02-05] MEDS: DAKINS QUARTER STRENGTH (0.125%) 480 ML BOTTLE TOP SCH ×2 (09:20)
[2023-02-05] MEDS: CLOTRIMAZOLE 1% 15 GM TUBE TP SCH ×2 (09:21→18:14)
[2023-02-05] MEDS: CADEXOMER IODINE 40 GM TUBE TP SCH ×2 (09:22→09:24)
[2023-02-05] MEDS: CEFEPIME 2 GM in IV D5W 100 ML IV SCH (09:24)
[2023-02-05] MEDS: VANCOMYCIN 500 MG in IV D5W 100ml IV SCH (10:48)
[2023-02-05] MEDS ORDERED: VANC1VIA34 XX (11:51)
[2023-02-05] MEDS ORDERED: MERO500V23 IV (11:51)
[2023-02-05] MEDS ORDERED: CADE40GE2 TP (11:51)
[2023-02-05] MEDS ORDERED: MEROPENEM 500 MG in IV NS 0.9% 50 ML IV SCH (13:00)
[2023-02-05] MEDS: JEVITY 1.2 CAL 1,000 ML BOTTLE GT PRN (13:26)
[2023-02-05] MEDS ORDERED: THERAHONEY GEL 1.5 OZ TUBE TP SCH (14:00)
[2023-02-05] MEDS: SOD FERRIC GLUC 125 MG in IV NS 0.9% 100 ML IV SCH (17:07)
[2023-02-05 17:15] VITALS: BP 89/48
== END 2023-02-05 19:00 | DRG 853 ==
LOC: ER 13:55 → MED 18:26 → TELE 21:42 → ICU 01-31 15:25 → TELE 02-02 10:47
PROVIDERS: ADMIT Nurse Practitioner Family; ATTEND Internal Medicine
PROC: 05H933Z Insertion of Infusion Device into Right Brachial Vein, Percutaneous Approach (ICD-10-PCS; 2023-01-31)
PROC: 30233N1 Transfusion of Nonautologous Red Blood Cells into Peripheral Vein, Percutaneous Approach (ICD-10-PCS; 2023-02-01)
PROC: 0KBN0ZZ Excision of Right Hip Muscle, Open Approach (ICD-10-PCS; principal; 2023-02-02)
PROC: 0KBP0ZZ Excision of Left Hip Muscle, Open Approach (ICD-10-PCS; 2023-02-02)
DX: A41.9 Sepsis, unspecified organism (principal); J69.0 Pneumonitis due to inhalation of food and vomit; N17.0 Acute kidney failure with tubular necrosis; L89.154 Pressure ulcer of sacral region, stage 4; G93.49 Other encephalopathy; E44.0 Moderate protein-calorie malnutrition; N39.0 Urinary tract infection, site not specified; E87.1 Hypo-osmolality and hyponatremia; I69.354 Hemiplegia and hemiparesis following cerebral infarction affecting left non-dominant side; L03.116 Cellulitis of left lower limb; R64 Cachexia; Z16.24 Resistance to multiple antibiotics; E86.0 Dehydration; I10 Essential (primary) hypertension; G40.909 Epilepsy, unspecified, not intractable, without status epilepticus; I25.10 Atherosclerotic heart disease of native coronary artery without angina pectoris; I25.2 Old myocardial infarction; Z86.16 Personal history of COVID-19; R13.10 Dysphagia, unspecified; R26.2 Difficulty in walking, not elsewhere classified; E55.9 Vitamin D deficiency, unspecified; Z87.39 Personal history of other diseases of the musculoskeletal system and connective tissue; Z79.82 Long term (current) use of aspirin; Z79.899 Other long term (current) drug therapy; B96.89 Other specified bacterial agents as the cause of diseases classified elsewhere; E87.5 Hyperkalemia; R74.01 Elevation of levels of liver transaminase levels; E88.09 Other disorders of plasma-protein metabolism, not elsewhere classified; Z93.1 Gastrostomy status; B35.1 Tinea unguium; E03.9 Hypothyroidism, unspecified; Z79.890 Hormone replacement therapy; I70.0 Atherosclerosis of aorta; L89.529 Pressure ulcer of left ankle, unspecified stage; L60.2 Onychogryphosis; Y95 Nosocomial condition; E86.1 Hypovolemia; M62.422 Contracture of muscle, left upper arm; M62.421 Contracture of muscle, right upper arm
CPT/HCPCS: 36410; 36415; 71045-TC; 71250-TC; 73600-TC; 73630-TC; 76700-TC; 76770-TC; 80048-TC; 80061-TC; 80076-TC; 80202-TC; 81001; 82272-TC; 82570-TC; 82728-TC; 83540-TC; 83605-TC; 83735-TC; 84100-TC; 84300-TC; 84439-TC; 84443-TC; 85025-TC; 85652-TC; 86140-TC; 86850-TC; 87040-TC; 87081-TC; 87086-TC; A4223; A6403; G0378; J0360; J0692; J1953; J2185; J2370; J2543; J2916; J3370; J3490; J7030; J7050; J7060; P9016